=== PATIENT | female | born 1985 | race Caucasian/White ===

== ENCOUNTER 2019-08-29 15:11 | Emergency (ER) | payer OTHER, SELFPAY ==
[2019-08-29 15:14] VITALS: BP 135/79; PULSE 87; RESP 20; TEMP 36.7; O2SAT 100
--- NOTE | 2019-08-29 15:53 | ED.URI ---
HPI - URI/Sore Throat General Chief Complaint: Upper Respiratory Infection Stated Complaint: st, EAR PAIN, STREP EXPOSURE Time Seen by Provider: 08/29/19 15:22 Source: patient Mode of arrival: ambulatory Limitations: no limitations History of Present Illness HPI Narrative: This is a 34 year old female that presents to the ER for cold symptoms x 4 days. Reports fever, myalgias, headache, sore throat, congestion and ear pain. Also reports a mild cough. Denies chest pain or shortness of breath. Related Data Allergies Allergy/AdvReac Type Severity Reaction Status Date / Time No Known Allergies Allergy Verified 08/29/19 15:21 Review of Systems Review of Systems: Narrative: CONSTITUTIONAL: Reports fever, chills ENT: Reports rhinorrhea, congestion, sore throat, and otalgia. CARDIOVASCULAR: Denies chest pain RESPIRATORY: Reports cough. Denies dyspnea. All systems reviewed & are unremarkable except as noted in HPI and below PMFSH Social History Social History (Updated 08/29/19 @ 16:01 by Amaya Bruno PA-C) Smoking status: Never smoker Substance use: never Exam Narrative: Exam Narrative: GENERAL: Well-appearing, well-nourished, and in no acute distress. HEAD: Normocephalic, atraumatic. EYES: EOMI. ENT: Turbinates swollen and pale. Mucous membranes moist. Oropharynx with mild tonsillar hypertrophy, exudate or other lesions. Bilateral cerumen impaction NECK: Supple. No adenopathy or masses. CHEST: Clear to auscultation. No respiratory distress. No wheezes rales or rhonchi HEART: Regular rate and rhythm. No murmur heard. Normal peripheral pulses. EXTREMITIES: Normal range of motion. No edema. SKIN: Warm, dry, no rash. NEURO: No focal deficits. Alert and oriented x3. PSYCH: Normal mood and affect Course Vital Signs Vital signs: Vital Signs Temperature 98.0 F 08/29/19 15:14 Pulse Rate 87 08/29/19 15:14 Respiratory Rate 08/29/19 15:14 Blood Pressure 135/79 08/29/19 15:14 Pulse Oximetry 100 08/29/19 15:14 Temperature 98.0 F 08/29/19 15:14 Pulse Rate 87 08/29/19 15:14 Respiratory Rate 08/29/19 15:14 Blood Pressure 135/79 08/29/19 15:14 Pulse Oximetry 100 08/29/19 15:14 Procedures Ear Wax Removal Left Ear: Ear Wax Removal Date: 08/29/19 Ear Wax Removal Time: 17:27 Cerumenolytic Used: other (debrox) Results: Re-examined: some cerumen remains Ear Canal Exam: atraumatic Patient Tolerated Procedure: well Complications: no problems Technique: ear canal curetted MDM - URI/Sore Throat MDM Narrative Medical decision making narrative: Patient presents the emergency department for cold symptoms times 4 days. She is afebrile and nontoxic-appearing. Lungs are clear on exam. Rapid strep and influenza screens are negative. Patient reports ear pain and history of recurrent ear infections. I was able to remove some cerumen from the external auditory canals. But still has some impacted cerumen close to the TM. I did not want to further remove as to not perforate the TMs. External auditory canals are irritated and erythematous. Patient will be started on antibiotics and was instructed to follow up with her ENT doctor Lab Data Labs: Influenza A Screen Negative Reference Range: Negative Influenza B Screen Negative Reference Range: Negative Strep Screen Presumptive Negative *(Reference Range: Negative)* Critical Care Time Critical Care Time Critical Care Time: No Discharge Plan Discharge Clinical Impression: Otitis externa Qualifiers: Otitis externa type: unspecified type Chronicity: acute Laterality: bilateral Qualified Code(s): H60.503 - Unspecified acute noninfective otitis externa, bilateral Cerumen impaction Qualifiers: Laterality: bilateral Qualified Code(s): H61.23 - Impacted cerumen, bilateral Patient Disposition: Home, Self-Care Condition: Stable
[2019-08-29] MEDS: CARBAMIDE PEROXIDE 6.5% OT SOLN 15 ML BTL 5 DROP EACH EAR (16:19)
--- NOTE | 2019-08-29 17:03 | PC.NURSE ---
PT REFUSES TORADOL STATING THAT IT MAKE HER THROW UP. PT REPORTS TOLERATING IBUPROFEN TODAY
== END 2019-08-29 17:43 | disposition home or self-care (01) ==
PROVIDERS: Emergency Provider Emergency Medicine
DX: H60.503 Unspecified acute noninfective otitis externa, bilateral (principal); H61.23 Impacted cerumen, bilateral
CPT/HCPCS: 69210; 87081; 87804; 87880; 99283; A9270

== ENCOUNTER 2020-03-25 18:56 | Emergency (ER) | payer OTHER, SELFPAY ==
--- NOTE | ~2020-03-25 | CT_ITS ---
EXAMINATION: CT abdomen pelvis w con EXAM DATE: 03/25/2020 21:57 INDICATION: Diverticulitis. TECHNIQUE: Spiral CT of the abdomen and pelvis was performed following intravenous injection of 100 m L Omnipaque 350. Axial, coronal and sagittal images were reviewed. The dose-length product (DLP) fo r this examination was 766.43 mGy-cm. The exposure was tailored according to patient size (auto mA e xposure control), and iterative reconstruction (ASIR) was used as additional dose reduction technique . There is no prior study for comparison. FINDINGS: The liver, spleen, adrenal glands and pancreas are unremarkable. There are cholecystectomy clips. Portal and splenic veins are patent. Kidneys enhance symmetrically. There is no hydronephr osis. The uterus is anteverted and morphologically normal. The bladder is unremarkable. There is no retroperitoneal or pelvic lymphadenopathy. The appendix is normal. There is mild scattered colonic diverticulosis. There is no adjacent inflamm atory change to suggest diverticulitis. The stomach and small bowel are unremarkable. There is expec francis amount of colonic stool. No free intraperitoneal gas. The heart is normal in size. There are no pericardial or pleural effusions. The lung bases are unremarkable. There are no osteoblastic or osteolytic lesions identified. IMPRESSION: 1. No acute intra-abdominal findings. 2. Mild colonic diverticulosis. Reviewed, dictated and finalized at location G.
[2020-03-25 18:59] VITALS: BP 142/98; PULSE 81; RESP 18; TEMP 36.3; O2SAT 98
[2020-03-25 20:53] LABS: Basophils Percent Auto 0.4 % (0.2-1.2); Eosinophils Absolute Auto 0.3 K/mm3 (0-0.3); Eosinophils Percent Auto 2.8 % (0-4.4); Hemoglobin 12.8 g/dL (12.0-15.0); Immature Granulocyte Absolute 0.02 K/mm3 (0.00-0.031); Immature Granulocyte Percent A 0.2 % (0-0.5); Lymphocytes Absolute Auto 3.86 K/mm3 (0.9-3.2); Lymphocytes Percent Auto 38.7 % (18.3-44.2); Mean Corpuscular HGB Conc 33.7 g/dl (32-36); Mean Corpuscular Hemoglobin 27.8 pg (26-34); Mean Corpuscular Volume 82.6 fl (80-100); Mean Platelet Volume 10.9 fl (7.4-10.4); Monocytes Absolute Auto 0.7 K/mm3 (0.1-0.6); Monocytes Percent Auto 7.4 % (2.6-8.5); Neutrophils Percent Auto 50.5 % (45.5-73.1); Platelet Count Result 358 k/mm3 (150-375); Red Cell Distribution Width 12.5 % (11.5-14.5)
[2020-03-25 20:54] LABS: Alanine Aminotransferase 34 U/L (4-35); Albumin Level 4.3 g/dL (3.5-5.1); Alkaline Phosphatase 71 U/L (38-126); Anion Gap 9 mmol/L (8-16); Aspartate Amino Transferase 34 U/L (14-36); Bilirubin,Total 0.3 mg/dL (0.2-1.3); Blood Urea Nitrogen 13 mg/dL (7-17); Calcium 9.5 mg/dL (8.4-10.2); Carbon Dioxide 26 mmol/L (22-30); Chloride 102 mmol/L (98-107); Estimated CRCL calculation 83 ml/min; Estimated Glomerular Filt Rate > 60; Glucose 95 mg/dL (65-105); Lipase 87 U/L (23-300); Potassium 4.1 mmol/L (3.4-5.0); Sodium 137 mmol/L (137-145)
[2020-03-25] MEDS: SODIUM CHLORIDE 0.9% IV 1,000 ML 150 ML IV CONT (21:05)
[2020-03-25] MEDS: KETOROLAC 30 MG/ML VIAL (*BKC) IV PUSH (21:05)
[2020-03-25 21:16] LABS: Lactic Acid Reflex < 0.5 mmol/L (0.7-2.1)
[2020-03-25 21:19] LABS: Add Urine Microscopic? NO; Appearance Urine Clear (Clear); Bilirubin Urine Negative (Negative); Blood Urine Negative (Negative); Color Urine Yellow (Yellow); Glucose Urine UA Negative (Negative); Ketones Urine Negative (Negative); Leukocyte Esterase Ur Negative LEU/UL (Negative); Nitrate Urine Negative (Negative); Protein Urine Negative (Negative); Specific Grav Ur 1.019 (1.001-1.035); Urobilinogen Urine Negative mg/dL (<2.0)
--- NOTE | 2020-03-25 22:18 | PC.NURSE ---
Dr. Wolf at bedside.
--- NOTE | 2020-03-25 22:19 | ED.ABDPAIN ---
HPI - Abdominal Pain General Chief Complaint: Abdominal Pain Stated Complaint: abdominal pain Time Seen by Provider: 03/25/20 20:37 Source: patient Mode of arrival: ambulatory Limitations: no limitations History of Present Illness HPI narrative: 35-year-old with no major medical problems here with complaints of lower abdominal and back pain for past few days. Patient states that she has seen a OB doctor for the same. She presently denies any vaginal bleeding or discharge. She denies any fever or chills. MD elicited complaint: abdominal pain Pertinent past history: none Pain Consistency: constant Location: other (Lower back and perineal area) Severity: mild Quality: aching Exacerbating factors: nothing Relieving factors: nothing Related Data Allergies Allergy/AdvReac Type Severity Reaction Status Date / Time No Known Allergies Allergy Verified 03/25/20 19:01 Review of Systems Review of Systems: All systems reviewed & are unremarkable except as noted in HPI and below Constitutional: Constitutional: Reports no additional constitutional complaints Eyes: Eyes: Reports as per HPI Cardiovascular: Cardiovascular: Reports no additional cardiovascular complaints Respiratory: Respiratory: Reports no additional respiratory complaints Gastrointestinal: Gastrointestinal: Reports no additional gastrointestinal complaints Genitourinary: Genitourinary: Reports no additional female genitourinary complaints [facility] Social History Social History Smoking status: Never smoker Substance use: never Gender identity (if verbalized by the patient): Female Exam Narrative: Exam Narrative: GENERAL: Well-appearing, well-nourished, and in no acute distress. HEAD: Normocephalic, atraumatic. EYES: PERRLA and EOMI. ENT: Nares clear, no rhinorrhea or epistaxis. Mucous membranes moist. NECK: Supple. CHEST: Clear to auscultation. No respiratory distress. HEART: Regular rate and rhythm. No murmur heard. Normal peripheral pulses. ABDOMEN: Soft, nontender, nondistended, normal active bowel sounds. EXTREMITIES: Normal range of motion. No edema. SKIN: Warm, dry, no rash. NEURO: No focal deficits. Alert and oriented x3. PSYCH: Normal mood and affect. Course Course Emergency Course: Patient was constantly up and down on the bed talking on the phone and appears to be in no discomfort. I discussed her lab work, CT findings at this time there is no obvious in lab work or in CAT scan for cause of her pain. Advised her to take ibuprofen for pain as needed and follow-up with her OB doctor. Vital Signs Vital signs: Vital Signs Temperature 36.3 C L 03/25/20 18:59 Pulse Rate 81 03/25/20 18:59 Respiratory Rate 18 03/25/20 18:59 Blood Pressure 142/98 H 03/25/20 18:59 Pulse Oximetry 98 03/25/20 18:59 Temperature 36.3 C L 03/25/20 18:59 Pulse Rate 81 03/25/20 18:59 Respiratory Rate 18 03/25/20 18:59 Blood Pressure 142/98 H 03/25/20 18:59 Pulse Oximetry 98 03/25/20 18:59 MDM - Abdominal Pain Differential Diagnosis Differential diagnosis: Likely abdominal pain, diverticulitis and other (Spinal stenosis) Lab Data Attestation: I reviewed the patient's lab results. Result diagrams: 03/25/20 19:18 03/25/20 19:18 Labs: Lab Results 03/25/20 03/25/20 03/25/20 Range/Units 19:18 19:18 20:54 WBC 10.0 (4.5-10.0) K/mm3 RBC 4.60 (4.2-5.4) M/mm3 Hgb 12.8 (12.0-15.0) g/dL Hct 38.0 (37.0-47.0) % MCV 82.6 (80-100) fl MCH 27.8 (26-34) pg MCHC 33.7 (32-36) g/dl RDW 12.5 (11.5-14.5) % Plt Count 358 (150-375) k/mm3 MPV 10.9 H (7.4-10.4) fl Immature Gran % (Auto) 0.2 (0-0.5) % Neut % (Auto) 50.5 (45.5-73.1) % Lymph % (Auto) 38.7 (18.3-44.2) % [place] % (Auto) 7.4 (2.6-8.5) % Eos % (Auto) 2.8 (0-4.4) % Baso % (Auto) 0.4 (0.2-1.2) % Lymph # (Auto) 3.86 H (0.9-3.
[2020-03-25 22:29] VITALS: BP 132/78; PULSE 70; RESP 18; O2SAT 99
== END 2020-03-25 22:31 | disposition home or self-care (01) ==
PROVIDERS: Emergency Provider Family Medicine
DX: R10.2 Pelvic and perineal pain (principal); K57.90 Diverticulosis of intestine, part unspecified, without perforation or abscess without bleeding
CPT/HCPCS: 36415; 74177; 80053; 81003; 81025; 83605; 83690; 85025; 96361; 96374; 99284; J1885; J7030; Q9967

== ENCOUNTER 2020-09-17 15:30 | Emergency (ER) | payer OTHER, SELFPAY ==
[2020-09-17 15:40] VITALS: BP 139/88; PULSE 78; RESP 16; TEMP 36.9; O2SAT 99
--- NOTE | 2020-09-17 15:55 | ED.URI ---
HPI - URI/Sore Throat General Chief Complaint: Upper Respiratory Infection Stated Complaint: sinus issues Time Seen by Provider: 09/17/20 15:41 Source: patient and RN notes reviewed Mode of arrival: ambulatory Limitations: no limitations History of Present Illness HPI Narrative: Patient presents today with a 3-day history of postnasal drip, sneezing, headache, and rhinorrhea. States sore throat started 3 days ago, but quickly resolved. Denies congestion, fever, cough, nausea or vomiting, ear pain. Denies any history of asthma or COPD. Does report history of seasonal allergies. She has been taking Mucinex without relief. She does not currently take anything for her seasonal allergies. She is a former smoker, quitting approximately 2 years ago. MD elicited complaint: rhinorrhea Related Data Allergies Allergy/AdvReac Type Severity Reaction Status Date / Time No Known Allergies Allergy Verified 03/25/20 19:01 Review of Systems Review of Systems: Narrative: CONSTITUTIONAL: Denies body aches, fever, chills, or sweats. EYES: Denies visual changes, redness, or discharge. ENT: Denies congestion, sore throat, or otalgia.+ Postnasal drip, rhinorrhea, sneezing CARDIOVASCULAR: Denies chest pain, palpitations, or edema. RESPIRATORY: Denies cough or dyspnea. GASTROINTESTINAL: Denies abdominal pain, nausea, vomiting, or diarrhea. GENITOURINARY: Denies dysuria or hematuria. SKIN: Denies rash, itching, or wounds. MUSCULOSKELETAL: Denies back pain, joint pain, or myalgia. NEUROLOGIC: Denies numbness, tingling, or weakness. + Headache PSYCH: Denies depression or anxiety. PMFSH Social History Social History (Updated 09/17/20 @ 16:15 by Rachelle Hilton, [facility], ) Smoking status: Former smoker Substance use: never Gender identity (if verbalized by the patient): Female Comments At time of signature, I have reviewed and agree with nursing past medical, surgical, social and family history unless otherwise noted. Please see nursing chart for further information. There is no relevant family history pertinent to the presenting complaint Exam Narrative: Exam Narrative: GENERAL: Well-appearing, well-nourished, and in no acute distress. HEAD: Normocephalic, atraumatic. EYES: EOMI. No redness or drainage. Conjunctivae normal. ENT: Mucous membranes pink and moist. Nares clear. Nasal turbinates are mildly edematous. no rhinorrhea. TMs are occluded with bilateral cerumen impactions. Throat normal with clear postnasal drainage. Uvula midline. NECK: Normal AROM. Supple. No lymphadenopathy. CHEST: No respiratory distress. Clear to auscultation. HEART: Regular rate and rhythm. No murmur appreciated. Normal peripheral pulses. EXTREMITIES: Normal range of motion. No edema. SKIN: Warm, dry, no rash. Capillary refill normal. Normal skin turgor. NEURO: No focal deficits. Alert and oriented x3. Gait steady. PSYCH: Normal affect. No signs of depression or anxiety. Course Vital Signs Vital signs: Vital Signs Temperature 98.5 F 09/17/20 15:40 Pulse Rate 78 09/17/20 15:40 Respiratory Rate 16 09/17/20 15:40 Blood Pressure 139/88 09/17/20 15:40 Pulse Oximetry 99 09/17/20 15:40 Temperature 98.5 F 09/17/20 15:40 Pulse Rate 78 09/17/20 15:40 Respiratory Rate 16 09/17/20 15:40 Blood Pressure 139/88 09/17/20 15:40 Pulse Oximetry 99 09/17/20 15:40 Reviewed. Pt has been instructed to follow up with her PCP regarding her elevated blood pressure today. MDM - URI/Sore Throat Differential Diagnosis Differential diagnosis: Likely upper respiratory infection, sinusitis, viral infection and other (Rhinitis, COVID-19, seasonal allergies) Critical Care Time Critical Care Time Critical Care Time: No Discharge Plan Discharge Clinical Impression: Allergic rhinitis Qualifiers: Allergic rhinitis trigger: unspecified Allergic rhinitis seasonality: unspecified Qualified Code(s): J30.9 - Allergic rhinitis, unspecified
== END 2020-09-17 16:03 | disposition home or self-care (01) ==
PROVIDERS: Emergency Provider Nurse Practitioner
DX: J30.9 Allergic rhinitis, unspecified (principal); Z87.891 Personal history of nicotine dependence
CPT/HCPCS: 99213; G0463

== ENCOUNTER 2021-01-06 14:49 | Emergency (ER) | payer OTHER, SELFPAY ==
[2021-01-06 14:58] VITALS: BP 125/75; PULSE 78; RESP 16; TEMP 36.8; O2SAT 98
--- NOTE | 2021-01-06 15:01 | ED.EAR ---
HPI - Ear Problem General Chief complaint: Ear Stated complaint: EARACHE Time Seen by Provider: 01/06/21 14:52 Source: patient Mode of arrival: ambulatory Limitations: no limitations History of Present Illness HPI Narrative: 35-year-old female presents to [facility] with complaints of left ear pain and swelling since yesterday. Patient has been swimming a lot lately. Patient reports long history of ear infections. Patient denies cough, runny nose, nasal congestion, fever, bodies, chills, nausea, vomiting or diarrhea. MD Complaint: ear pain Location: left ear Exacerbating factors: nothing Discharge from ear: Reports no Treatment prior to arrival: none Related Data Allergies Allergy/AdvReac Type Severity Reaction Status Date / Time No Known Allergies Allergy Verified 03/25/20 19:01 Review of Systems Constitutional: Constitutional: Denies chills, Denies fatigue, Denies fever(s) and Denies weakness ENT: Denies dysphagia, Denies epistaxis and Denies sore throat Comments: Left ear pain Cardiovascular: Cardiovascular: Denies chest pain, Denies rapid heart rate, Denies radiating jaw, neck or arm pain and Denies slow heart rate Respiratory: Respiratory: Denies chest congestion, Denies cough, Denies dyspnea and Denies wheezing Gastrointestinal: Gastrointestinal: Denies abdominal pain, Denies diarrhea, Denies nausea and Denies vomiting Integumentary/Breasts: Skin/Breast: Denies rash Neurologic: Denies dizziness PMFSH Family History Family History (Updated 01/06/21 @ 15:03 by Shira Barkley APRN) Father Acute myocardial infarction Social History Social History Smoking status: Former smoker Substance use: never Gender identity (if verbalized by the patient): Female Comments At time of signature, I agree with nursing past medical, surgical, social and family history. There is no relevant family history pertinent to the presenting complaint. Exam Const: General: no acute distress Nutritional Appearance: well nourished Orientation/consciousness: patient oriented x3 HENMT: Head: normal to inspection Ears: Abnormal EAC present (Mild cerumen noted to bilateral ear canals) edema on the left and EAC tenderness on the left General nose exam: Normal external nose present and Normal nares present Face and sinus: sinuses nontender Mouth: Yes Normal oral and palatal mucosa present, Yes lip normal and Yes moist mucous membranes Throat: posterior oropharynx normal and uvula midline Neck: Neck: normal visual inspection Resp: Effort & Inspection: normal respiratory effort, not labored, no retractions and not tachypneic Auscultation: clear to auscultation bilaterally Cardio: Rate: regular rate, not bradycardic and not tachycardic Rhythm: regular rhythm Skin: General skin exam: normal color Rashes: no rashes Wounds: no wounds Neuro: General: patient oriented x3, moves all extremities and no meningeal signs Psych: Appearance: grossly normal Mental Status: mental status grossly normal Affect: normal affect Thought content: Yes Normal thought content present Course Vital Signs Vital signs: Vital Signs Temperature 36.8 C 01/06/21 14:58 Pulse Rate 78 01/06/21 14:58 Respiratory Rate 16 01/06/21 14:58 Blood Pressure 125/75 01/06/21 14:58 Pulse Oximetry 98 01/06/21 14:58 Temperature 36.8 C 01/06/21 14:58 Pulse Rate 78 01/06/21 14:58 Respiratory Rate 16 01/06/21 14:58 Blood Pressure 125/75 01/06/21 14:58 Pulse Oximetry 98 01/06/21 14:58 Medical Decision Making MDM Narrative Medical decision making narrative: Patient agrees to take meds as prescribed. Patient agrees to use OTC Debrox as needed for cerumen impaction. Patient agrees to proceed to ER if symptoms worsen Differential Diagnosis Differential Diagnosis: cerumen impaction, acute otalgia Vital Signs Vital Signs: Vital Signs Temperature 36.8 C 01/06/21 14:
== END 2021-01-06 15:12 | disposition home or self-care (01) ==
PROVIDERS: Emergency Provider Nurse Practitioner Family
DX: H66.92 Otitis media, unspecified, left ear (principal); H60.502 Unspecified acute noninfective otitis externa, left ear; Z87.891 Personal history of nicotine dependence
CPT/HCPCS: 99213; G0463

== ENCOUNTER 2021-03-21 15:55 | Emergency (ER) | payer OTHER, SELFPAY ==
[2021-03-21 16:09] VITALS: BP 125/69; PULSE 70; RESP 20; TEMP 36.8; O2SAT 99
--- NOTE | 2021-03-21 17:40 | ED.EAR ---
HPI - Ear Problem General Chief complaint: Ear Stated complaint: Ear Pain Time Seen by Provider: 03/21/21 17:06 Source: patient and RN notes reviewed Mode of arrival: ambulatory Limitations: no limitations History of Present Illness HPI Narrative: Patient presents today complaining of bilateral ear pain, right greater than left with muffled hearing. Pain started last night. Denies congestion, rhinorrhea, cough, fever. She has been taking Tylenol and ibuprofen without relief. She currently rates her pain 7/10. She had an ear infection approximately 1 month ago for which she took amoxicillin. MD Complaint: ear pain and decreased hearing Related Data Allergies Allergy/AdvReac Type Severity Reaction Status Date / Time No Known Allergies Allergy Verified 03/21/21 16:22 Review of Systems Review of Systems: CONSTITUTIONAL: Denies body aches, fever, chills, or sweats. EYES: Denies visual changes, redness, or discharge. ENT: Denies rhinorrhea, congestion, sore throat. + Bilateral ear pain with muffled hearing CARDIOVASCULAR: Denies chest pain, palpitations, or edema. RESPIRATORY: Denies cough or dyspnea. GASTROINTESTINAL: Denies abdominal pain, nausea, vomiting, or diarrhea. GENITOURINARY: Denies dysuria or hematuria. SKIN: Denies rash, itching, or wounds. MUSCULOSKELETAL: Denies back pain, joint pain, or myalgia. NEUROLOGIC: Denies headache, numbness, tingling, or weakness. PSYCH: Denies depression or anxiety. PMFSH Surgical History Surgical History (Updated 03/21/21 @ 17:42 by Rachelle Hilton, [facility], ) H/O tubal ligation Family History Family History Father Acute myocardial infarction Social History Social History Smoking status: Former smoker Substance use: never Gender identity (if verbalized by the patient): Female Comments At time of signature, I have reviewed and agree with nursing past medical, surgical, social and family history unless otherwise noted. Please see nursing chart for further information. There is no relevant family history pertinent to the presenting complaint Exam Narrative: GENERAL: Well-appearing, well-nourished, and in no acute distress. HEAD: Normocephalic, atraumatic. EYES: EOMI. No redness or drainage. Conjunctivae normal. ENT: Mucous membranes pink and moist. Nares clear. No rhinorrhea. Bilateral cerumen impactions. Bilateral erythematous and edematous ear canals. Movement and tragal tenderness on the right. Throat normal. Uvula midline. NECK: Normal AROM. CHEST: No respiratory distress. EXTREMITIES: Normal range of motion. No edema. SKIN: Warm, dry, no rash. Capillary refill normal. Normal skin turgor. NEURO: No focal deficits. Alert and oriented x3. Gait steady. PSYCH: Normal affect. No signs of depression or anxiety. Course Vital Signs Vital signs: Vital Signs Temperature 98.2 F 03/21/21 16:09 Pulse Rate 70 03/21/21 16:09 Respiratory Rate 20 03/21/21 16:09 Blood Pressure 125/69 03/21/21 16:09 Pulse Oximetry 99 03/21/21 16:09 Temperature 98.2 F 03/21/21 16:09 Pulse Rate 70 03/21/21 16:09 Respiratory Rate 20 03/21/21 16:09 Blood Pressure 125/69 03/21/21 16:09 Pulse Oximetry 99 03/21/21 16:09 Reviewed. Pt has been instructed to follow up with her PCP regarding her elevated blood pressure today. Procedures Ear Wax Removal Both Ears: Ear Wax Removal Date: 03/21/21 Ear Wax Removal Time: 17:15 Cerumenolytic Used: other (Peroxide) Results: Re-examined: some cerumen remains ( right ear) TM Examination: TM(s) intact, normal appearance (Left care) Patient Tolerated Procedure: well Complications: no problems Technique: ear canal irrigated (Right) and ear canal curetted (Left) Medical Decision Making Differential Diagnosis Differential Diagnosis: Otitis
== END 2021-03-21 17:50 | disposition home or self-care (01) ==
PROVIDERS: Emergency Provider Nurse Practitioner
DX: H61.23 Impacted cerumen, bilateral (principal); H60.503 Unspecified acute noninfective otitis externa, bilateral; Z87.891 Personal history of nicotine dependence
CPT/HCPCS: 69210; 69209; 99213; G0463

== ENCOUNTER 2021-06-17 14:28 | Emergency (ER) | payer OTHER, SELFPAY ==
[2021-06-17 16:40] VITALS: BP 136/101; PULSE 76; RESP 16; TEMP 36.5; O2SAT 100
--- NOTE | 2021-06-17 17:43 | ED.GENADULT ---
HPI - General Adult General Chief complaint: Upper Respiratory Infection Stated complaint: sorethroat,cough Source: patient Mode of arrival: ambulatory Limitations: no limitations History of Present Illness HPI narrative: Patient presents for evaluation of respiratory symptoms for last 4 days. Symptoms include productive cough of yellow sputum with sore throat. She denies any fever, chills, nausea, vomiting, diarrhea. She has received COVID vaccination. She has not had a history of Covid. No recent sick contacts to her knowledge. She has tried taking ibuprofen with minimal improvement in her symptoms or after. Related Data Allergies Allergy/AdvReac Type Severity Reaction Status Date / Time No Known Allergies Allergy Verified 06/17/21 17:04 Review of Systems Review of Systems: CONSTITUTIONAL: Denies fever, chills, or sweats. EYES: Denies visual changes, redness, or discharge. ENT: Reports sore throat. Denies rhinorrhea, congestion, or otalgia. CARDIOVASCULAR: Denies chest pain, palpitations, or edema. RESPIRATORY: Reports productive cough. Denies shortness of breath. GASTROINTESTINAL: Denies abdominal pain, nausea, vomiting, or diarrhea. GENITOURINARY: Denies dysuria or hematuria. SKIN: Denies rash or itching. MUSCULOSKELETAL: Denies back pain, joint pain, or myalgia. NEUROLOGIC: Denies headache, numbness, dizziness, or weakness. PSYCHIATRIC: Denies anxiety or depression. PMFSH Past Medical History Medical History (Updated 06/17/21 @ 17:46 by Jose G Junior, THIERRY, ) No pertinent past medical history Surgical History Surgical History H/O tubal ligation History of tympanostomy tube placement Family History Family History Father Acute myocardial infarction Social History Social History Smoking status: Former smoker Substance use: never Gender identity (if verbalized by the patient): Female Sexual Orientation (if Verbalized by the Patient): Straight or Heterosexual Spiritual care concerns: No Exam Narrative: GENERAL: Well-appearing, well-nourished, and in no acute distress. HEAD: Normocephalic, atraumatic. EYES: PERRLA and EOMI. ENT: Nares clear, no rhinorrhea or epistaxis. Mucous membranes moist. Oropharynx without tonsillar hypertrophy exudate or other lesions. There is posterior pharyngeal erythema. Bilateral TMs pearly fox nonbulging NECK: Supple. No adenopathy or masses. No carotid bruits or JVD CHEST: Clear to auscultation. No respiratory distress. No wheezes rales or rhonchi HEART: Regular rate and rhythm. No murmur heard. Normal peripheral pulses. ABDOMEN: Soft, nontender, nondistended, normal active bowel sounds. EXTREMITIES: Normal range of motion. No edema. SKIN: Warm, dry, no rash. NEURO: No focal deficits. Alert and oriented x3. PSYCH: Normal mood and affect. Course Course Emergency Course: This is a 36-year-old female who presented with complaints of cough and sore throat. Covid was negative. Strep was negative. She refused influenza swab. I recommended chest x-ray, which she declined. Likely acute viral syndrome. Will discharge with Cepacol and Tessalon. Advised close follow-up and return for worsening symptoms. Patient agreed with plan of care. Level of Care: Express Care Visit Vital Signs Vital signs: Vital Signs Temperature 36.5 C 06/17/21 16:40 Pulse Rate 76 06/17/21 16:40 Respiratory Rate 16 06/17/21 16:40 Blood Pressure 136/101 H 06/17/21 16:40 Pulse Oximetry 100 06/17/21 16:40 Temperature 36.5 C 06/17/21 16:40 Pulse Rate 76 06/17/21 16:40 Respiratory Rate 16 06/17/21 16:40 Blood Pressure 136/101 H 06/17/21 16:40 Pulse Oximetry 100 06/17/21 16:40 Medical Decision Making Differential Diagnosis Differential Diagnosis: Strep pharyngitis julián
== END 2021-06-17 17:50 | disposition home or self-care (01) ==
PROVIDERS: Emergency Provider Nurse Practitioner
DX: B34.9 Viral infection, unspecified (principal); Z20.822 Contact with and (suspected) exposure to COVID-19; Z87.891 Personal history of nicotine dependence
CPT/HCPCS: 87081; 87426; 87880; 99213; C9803; G0463

== ENCOUNTER 2021-09-04 17:04 | Emergency (ER) | payer OTHER, SELFPAY ==
[2021-09-04 17:08] VITALS: BP 112/68; PULSE 65; RESP 16; TEMP 36.5; O2SAT 100
--- NOTE | 2021-09-04 17:31 | ED.SKABFB ---
HPI - Skin/Abscess/Foreign Bdy General Chief complaint: Skin/Abscess/Foreign Body Stated complaint: Staph infection Time Seen by Provider: 09/04/21 17:25 Source: patient Mode of arrival: ambulatory Limitations: no limitations History of Present Illness HPI narrative: Ms. Noriega is a 36-year-old female patient presenting to the clinic today with complaints of sores in her pelvic area. She reports that she first noticed these 2 days ago-they are becoming sore and hard. Has had staph infections in the past on her thigh and feels that this is what is going on. She is requesting antibiotics. She denies any fever or chills. She denies any drainage coming from the source Related Data Allergies Allergy/AdvReac Type Severity Reaction Status Date / Time No Known Allergies Allergy Verified 09/04/21 17:25 Review of Systems Review of Systems: Pertinent positives per HPI. Patient denies any fever, chills, rash, headache, visual changes, dizziness, cough, runny nose, sore throat, shortness of breath, chest pain, palpitations, nausea, vomiting, diarrhea, constipation, abdominal pain, or any urinary issues. PMFSH Past Medical History Medical History No pertinent past medical history Surgical History Surgical History H/O tubal ligation History of tympanostomy tube placement Family History Family History Father Acute myocardial infarction Social History Social History Smoking status: Former smoker Substance use: never Gender identity (if verbalized by the patient): Female Sexual Orientation (if Verbalized by the Patient): Straight or Heterosexual Spiritual care concerns: No Comments At the time of my signature, I reviewed and agree with the nursing past medical, surgical, social, and family history. There is no relevant family history pertinent to the patient complaint. Exam Narrative: General: Well-developed, well nourished, in no apparent distress Cardio: Regular rate and rhythm, s1 and s2 normal, no murmur appreciated. Resp: Clear to auscultation bilaterally, no rhonchi, rales, wheezing or rubs. Abdomen: Soft, pliable, bowel sounds present in all quadrants, non-tender to palpation, no CVAT tenderness. : Exterior pelvic exam performed with WIL RN at bedside. Verbal consent obtained from patient. Normal external female genitalia-two pea size sores to the inferior mons pubis just superior of clitoris. Sores are nonfluctuant-mild yellowish coloration. Tender to palpation with mild redness and swelling. Course Course Emergency Course: Portions of this record may have been created with voice recognition software. Level of Care: Express Care Visit Vital Signs Vital signs: Vital Signs Temperature 36.5 C 09/04/21 17:08 Pulse Rate 65 09/04/21 17:08 Respiratory Rate 16 09/04/21 17:08 Blood Pressure 112/68 09/04/21 17:08 Pulse Oximetry 100 09/04/21 17:08 Temperature 36.5 C 09/04/21 17:08 Pulse Rate 65 09/04/21 17:08 Respiratory Rate 16 09/04/21 17:08 Blood Pressure 112/68 09/04/21 17:08 Pulse Oximetry 100 09/04/21 17:08 Vital signs reviewed MDM - Skin/Abscess/Foreign Bdy MDM Narrative Medical decision making narrative: At the time of visit patient was evaluated and it was found that she has 2 pea-sized firm sores/folliculitis to the pelvis. I will send in a prescription for doxycycline for this for 7 days and have her use Hibiclens to prevent further infections. At this time these are not fluctuant and not drainable. Differential Diagnosis Differential diagnosis: Likely abscess of skin or subcutaneous tissue, herpes zoster, cellulitis and other Discharge Plan Discharge Clinical Impression: Folliculitis Patient Dispositi
== END 2021-09-04 17:46 | disposition home or self-care (01) ==
PROVIDERS: Emergency Provider Nurse Practitioner Family
DX: L73.9 Follicular disorder, unspecified (principal); Z87.891 Personal history of nicotine dependence
CPT/HCPCS: 99213; G0463

== ENCOUNTER 2021-11-28 16:31 | Emergency (ER) | payer OTHER, SELFPAY ==
[2021-11-28 16:39] VITALS: BP 119/67; PULSE 67; RESP 16; TEMP 37.3; O2SAT 99
--- NOTE | 2021-11-28 17:02 | ED.URI ---
HPI - URI/Sore Throat General Chief Complaint: Upper Respiratory Infection Stated Complaint: sore throat Time Seen by Provider: 11/28/21 16:46 Source: patient Mode of arrival: ambulatory Limitations: no limitations History of Present Illness HPI Narrative: Patient presents today with with a 2-day history of intermittent sore throat, that is typically present only with swallowing. Denies any additional symptoms. She currently rates her pain 2/10, and has tried no [id number]-naz-fhytico treatment prior to arrival. She presents today with her daughter has similar symptoms. Related Data Allergies Allergy/AdvReac Type Severity Reaction Status Date / Time No Known Allergies Allergy Verified 10/02/21 07:55 Review of Systems Review of Systems: CONSTITUTIONAL: Denies body aches, fever, chills, or sweats. EYES: Denies visual changes, redness, or discharge. ENT: Denies rhinorrhea, congestion, or otalgia.+ Sore throat CARDIOVASCULAR: Denies chest pain, palpitations, or edema. RESPIRATORY: Denies cough or dyspnea. GASTROINTESTINAL: Denies abdominal pain, nausea, vomiting, or diarrhea. GENITOURINARY: Denies dysuria or hematuria. SKIN: Denies rash, itching, or wounds. MUSCULOSKELETAL: Denies back pain, joint pain, or myalgia. NEUROLOGIC: Denies headache, numbness, tingling, or weakness. PSYCH: Denies depression or anxiety. [facility] Past Medical History Medical History No pertinent past medical history Surgical History Surgical History H/O tubal ligation History of tympanostomy tube placement Family History Family History Father Acute myocardial infarction Mother No problems noted. Sibling No problems noted. Social History Social History Smoking status: Former smoker Second hand tobacco smoke exposure: No Alcohol intake: current Substance use: never Substance use type: does not use Gender identity (if verbalized by the patient): Female Sexual Orientation (if Verbalized by the Patient): Straight or Heterosexual Spiritual care concerns: No Comments At time of signature, I have reviewed and agree with nursing past medical, surgical, social and family history unless otherwise noted. Please see nursing chart for further information. There is no relevant family history pertinent to the presenting complaint Exam Narrative: GENERAL: Well-appearing, well-nourished, and in no acute distress. HEAD: Normocephalic, atraumatic. EYES: EOMI. No redness or drainage. Conjunctivae normal. ENT: Mucous membranes pink and moist. Nares clear. No rhinorrhea. TMs normal bilaterally. Throat mildly erythematous without edema or exudate. Uvula midline. NECK: Normal AROM. Supple. No lymphadenopathy. CHEST: No respiratory distress. Clear to auscultation. HEART: Regular rate and rhythm. No murmur appreciated. Normal peripheral pulses. EXTREMITIES: Normal range of motion. No edema. SKIN: Warm, dry, no rash. Capillary refill normal. Normal skin turgor. NEURO: No focal deficits. Alert and oriented x3. Gait steady. PSYCH: Normal affect. No signs of depression or anxiety. Course Course Level of Care: Express Care Visit Vital Signs Vital signs: Vital Signs Temperature 99.2 F 11/28/21 16:39 Pulse Rate 67 11/28/21 16:39 Respiratory Rate 16 11/28/21 16:39 Blood Pressure 119/67 11/28/21 16:39 Pulse Oximetry 99 11/28/21 16:39 Oxygen Delivery Room Air 11/28/21 16:39 Temperature 99.2 F 11/28/21 16:39 Pulse Rate 67 11/28/21 16:39 Respiratory Rate 16 11/28/21 16:39 Blood Pressure 119/67 11/28/21 16:39 Pulse Oximetry 99 11/28/21 16:39 Oxygen Delivery Room Air 11/28/21 16:39 Reviewed MDM - URI/Sore Throat Differential Diagnosis Differen
== END 2021-11-28 17:14 | disposition home or self-care (01) ==
PROVIDERS: Emergency Provider Nurse Practitioner
DX: J02.9 Acute pharyngitis, unspecified (principal); Z87.891 Personal history of nicotine dependence
CPT/HCPCS: 87081; 87880; 99213; G0463

== ENCOUNTER 2023-08-08 18:33 | Emergency (ER) | payer SELFPAY ==
[2023-08-08 18:59] VITALS: BP 128/90; PULSE 79; RESP 16; TEMP 36.6; O2SAT 98
--- NOTE | 2023-08-08 19:08 | ED.FEMALEGU ---
HPI - Female Genitourinary General Chief complaint: Urogenital-Female Stated complaint: Uti symptoms Source: patient and RN notes reviewed Mode of arrival: ambulatory Limitations: no limitations History of Present Illness HPI Narrative: 38-year-old female presented stating ?I have bacterial vaginosis. ? she states she gets them often. This time it is resulting from inadvertantly using scented toilet paper. Tried yeast cream without improvement. Endorses vaginal itching, and constant thin discharge with foul odor. Denies hematuria, nausea, vomiting, abdominal pain, flank pain, constipation, diarrhea, fevers or chills. States she is not sexually active and is not concerned for std. Related Data Allergies Allergy/AdvReac Type Severity Reaction Status Date / Time No Known Allergies Allergy Verified 08/08/23 18:46 Review of Systems Review of Systems: CONSTITUTIONAL: Denies body aches, fever, chills, or sweats. CARDIOVASCULAR: Denies chest pain, palpitations, or edema. RESPIRATORY: Denies cough or dyspnea. GASTROINTESTINAL: Denies abdominal pain, nausea, vomiting, or diarrhea. GENITOURINARY: Reports denies dysuria, frequency, urgency, hematuria, flank pain SKIN: Denies rash, itching, or wounds. MUSCULOSKELETAL: Denies back pain or myalgia. [facility] Past Medical History Medical History No pertinent past medical history Surgical History Surgical History H/O tubal ligation History of tympanostomy tube placement Family History Family History Father Acute myocardial infarction Mother No problems noted. Sibling No problems noted. Social History Social History Smoking status: Former smoker Second hand tobacco smoke exposure: No Alcohol intake: current Substance use: never Substance use type: does not use Living arrangements: with family Gender identity (if verbalized by the patient): Female Sexual Orientation (if Verbalized by the Patient): Straight or Heterosexual Spiritual care concerns: No Comments At time of signature, I have reviewed and agree with nursing past medical, surgical, social and family history unless otherwise noted. Please see nursing chart for further information. There is no relevant family history pertinent to the presenting complaint Exam Narrative: GENERAL: Well-appearing and in no acute distress. ENT: Mucous membranes pink and moist. NECK: Normal AROM. Supple. CHEST: No respiratory distress. Clear to auscultation. HEART: Regular rate and rhythm. ABDOMEN: Soft, nontender, nondistended, normal active bowel sounds. No CVA tenderness SKIN: Warm, dry, no rash. NEURO: No focal deficits. Alert and oriented x3. Gait steady. PSYCH: Normal affect. Course Course Emergency Course: Patient is aware of diagnosis, understands and agrees to treatment plan. Anticipatory guidance given. Patient agrees to follow-up as directed and is aware of reasons to seek care at the emergency department. Portions of this record may have been created with voice recognition software Level of Care: Express Care Visit Vital Signs Vital signs: Vital Signs Temperature 98 F 08/08/23 18:59 Pulse Rate 79 08/08/23 18:59 Respiratory Rate 16 08/08/23 18:59 Blood Pressure 128/90 08/08/23 18:59 Pulse Oximetry 98 08/08/23 18:59 Temperature 98 F 08/08/23 18:59 Pulse Rate 79 08/08/23 18:59 Respiratory Rate 16 08/08/23 18:59 Blood Pressure 128/90 08/08/23 18:59 Pulse Oximetry 98 08/08/23 18:59 Reviewed MDM - Female Genitourinary MDM Narrative Medical decision making narrative: Results of urine reviewed patient. Will treat for BV at this time. She is also requesting fluconazole should she develop a yeast infection after
== END 2023-08-08 19:25 | disposition home or self-care (01) ==
PROVIDERS: Emergency Provider Nurse Practitioner Family
DX: N76.0 Acute vaginitis (principal); Z87.891 Personal history of nicotine dependence
CPT/HCPCS: 81003; 99213; G0463

== ENCOUNTER 2024-03-21 12:02 | Emergency (ER) | payer OTHER, SELFPAY ==
--- NOTE | ~2024-03-21 | XR_ITS ---
EXAMINATION: XR chest 2V DATE: 03/21/2024 12:56 INDICATION: Nonproductive cough TECHNIQUE: AP view of the chest was obtained. COMPARISON: None FINDINGS: The lungs are clear with no focal airspace opacities, pulmonary edema, pleural effusion or pneumothor ax. The cardiomediastinal silhouette is normal. Cholecystectomy clips in right upper quadrant. IMPRESSION: 1. No acute cardiopulmonary disease. Reviewed, dictated and finalized at location A.
[2024-03-21 12:16] VITALS: BP 125/87; PULSE 86; RESP 16; TEMP 36.8; O2SAT 98
--- NOTE | 2024-03-21 12:19 | ED.URI ---
HPI - URI/Sore Throat General Chief Complaint: Upper Respiratory Infection Stated Complaint: cough Time Seen by Provider: 03/21/24 12:19 Source: patient, RN notes reviewed and old records reviewed Mode of arrival: ambulatory Limitations: no limitations History of Present Illness HPI Narrative: Patient presents with complaints of 5 days of wheezing and cough. She denies any history of asthma. She does report that she has frequent bronchitis. She has been using her child's nebulizer states this is helpful. Reports cough is typically worse in the morning and at nighttime. She denies any fever, chills, sweats. Denies any nasal drainage. Voices no other concerns or complaints at this time. She is in no distress, including respiratory distress Related Data Allergies Allergy/AdvReac Type Severity Reaction Status Date / Time No Known Allergies Allergy Verified 03/21/24 12:28 Review of Systems Review of Systems: All systems reviewed & are unremarkable except as noted in HPI and below Constitutional: Constitutional: Reports no additional constitutional complaints ENT: Reports system reviewed and no additional complaints, except as documented Cardiovascular: Cardiovascular: Reports no additional cardiovascular complaints Respiratory: Respiratory: Reports no additional respiratory complaints Gastrointestinal: Gastrointestinal: Reports no additional gastrointestinal complaints [facility] Past Medical History Medical History No pertinent past medical history Surgical History Surgical History H/O tubal ligation History of tympanostomy tube placement Family History Family History Father Acute myocardial infarction Mother No problems noted. Sibling No problems noted. Social History Social History Smoking status: Former smoker Second hand tobacco smoke exposure: No Alcohol intake: current Substance use: never Substance use type: does not use Living arrangements: with family Gender identity (if verbalized by the patient): Female Sexual Orientation (if Verbalized by the Patient): Straight or Heterosexual Spiritual care concerns: No Comments At the time of my signature, I reviewed and agree with the nursing past medical, surgical, social, and family history. There is no relevant family history pertinent to the patient complaint. Exam Const: General: cooperative, no acute distress, alert and awake Orientation/consciousness: oriented to person, oriented to place and oriented to time HENMT: Head: normal to inspection Ears: TM's normal bilaterally Mouth: Yes moist mucous membranes Throat: posterior oropharynx normal Resp: Effort & Inspection: normal respiratory effort and able to speak in complete sentences Auscultation: clear to auscultation bilaterally, no crackles, no rales, no rhonchi and no wheezes Cardio: Palpation: normal PMI Rate: regular rate Rhythm: regular rhythm Heart sounds: S1 normal heart sound present and S2 normal heart sound present Neuro: General: oriented to person, oriented to place and oriented to time Cranial nerves: Yes CN's II-XII intact bilaterally Psych: Appearance: grossly normal Thought process: Normal thought process present Insight: Good insight present (Psych) Judgement: Good judgement present (Psych) Course Course Level of Care: Express Care Visit Vital Signs Vital signs: Vital Signs Temperature 98.3 F 03/21/24 12:16 Pulse Rate 86 03/21/24 12:16 Respiratory Rate 16 03/21/24 12:16 Blood Pressure 125/87 03/21/24 12:16 Pulse Oximetry 98 03/21/24 12:16 Oxygen Delivery Room Air 03/21/24 12:16 Temperature 98.3 F 03/21/24 12:16 Pulse Rate 86 03/21/24 12:16 Respiratory Rate 16 03/21/24 12:16 Blood P
[2024-03-21] MEDS: IPRATROPIUM 0.5 MG/ALBUTEROL SULFATE 2.5 MG AMPUL.NEB 3 ML INHALATION (13:00)
== END 2024-03-21 13:25 | disposition home or self-care (01) ==
PROVIDERS: Emergency Provider Nurse Practitioner Family
DX: J40 Bronchitis, not specified as acute or chronic (principal); Z87.891 Personal history of nicotine dependence
CPT/HCPCS: 71046; 94640; 99213; G0463

== ENCOUNTER 2024-03-25 10:18 | Emergency (ER) | payer OTHER, SELFPAY ==
[2024-03-25 10:34] VITALS: PULSE 87; RESP 20; TEMP 36.7; O2SAT 100
--- NOTE | 2024-03-25 11:14 | ED.URI ---
HPI - URI/Sore Throat General Chief Complaint: Upper Respiratory Infection Stated Complaint: cough,back pain,chest pain when cough Time Seen by Provider: 03/25/24 11:14 Source: patient Mode of arrival: ambulatory Limitations: no limitations History of Present Illness HPI Narrative: 39 yo F presents with c/o continued cough. Was seen here 5 days ago and given prednisone and albuterol inhaler. Taking OTC meds at home, such as dayquil/nyquil. Reports no relief from cough. States pulled rib, pulled upper back muscle from coughing. Has not smoked cigarettes for 6 years. Denies SOB/CP. ambulatory with steady gait. Requesting abx. All systems reviewed and negative except as noted above. Related Data Allergies Allergy/AdvReac Type Severity Reaction Status Date / Time No Known Allergies Allergy Verified 03/25/24 10:23 Review of Systems Review of Systems: CONSTITUTIONAL: Denies fever, chills, or sweats. EYES: Denies visual changes, redness, or discharge. ENT: Denies rhinorrhea, congestion, sore throat, or otalgia. CARDIOVASCULAR: Denies chest pain, palpitations, or edema. RESPIRATORY: Reports cough. Denies dyspnea. GASTROINTESTINAL: Denies abdominal pain, nausea, vomiting, or diarrhea. GENITOURINARY: Denies dysuria or hematuria. SKIN: Denies rash or itching. MUSCULOSKELETAL: Denies back pain, joint pain, or myalgia. NEUROLOGIC: Denies headache, numbness, or weakness. PSYCHIATRIC: Denies anxiety or depression. All other systems reviewed are negative, except as documented in HPI. [facility] Past Medical History Medical History No pertinent past medical history Surgical History Surgical History H/O tubal ligation History of tympanostomy tube placement Family History Family History Father Acute myocardial infarction Mother No problems noted. Sibling No problems noted. Social History Social History Smoking status: Former smoker Second hand tobacco smoke exposure: No Alcohol intake: current Substance use: never Substance use type: does not use Living arrangements: with family Gender identity (if verbalized by the patient): Female Sexual Orientation (if Verbalized by the Patient): Straight or Heterosexual Spiritual care concerns: No Comments At time of signature, agree with nursing past medical, surgical, social and family history. There is no relevant family history pertinent to the presenting complaint. Exam Narrative: GENERAL: This is a well-nourished, well-developed patient, Patient ill-appearing but in no acute distress. HEAD: normocephalic, atraumatic. EYES: PERRL. Sclera clear/white. Vision is grossly intact. EARS: External ears normal, auditory canals clear and without drainage, TMs normal without perforation. Hearing grossly intact. NOSE: External nose normal with no obvious nasal discharge, nares without redness, no rhinorrhea. THROAT: Mucous membranes moist, posterior pharynx clear. NECK: Neck supple, non-tender without lymphadenopathy, masses or thyromegaly. CARDIOVASCULAR: Regular rate and rhythm without murmurs, gallops, or rubs. RESPIRATORY: rhonchi on expiration to left upper lung field otherwise clear. Breath sounds equal bilaterally. No wheezes, rales SKIN: warm, Dry, intact with no suspicious lesions or rash, good texture and turgor. NEURO: awake, alert, and oriented to person, place and time. There were no obvious focal neurologic abnormalities. EXTREMITIES: No joint tenderness, effusion, or edema noted. Course Course Level of Care: Express Care Visit Vital Signs Vital signs: Vital Signs Temperature 36.7 C 03/25/24 10:34 Pulse Rate 87 03/25/24 10:34 Respiratory Rate 20 03/25/24 10:34 Pulse Oximetry 100 03/25/24 10:34
== END 2024-03-25 11:30 | disposition home or self-care (01) ==
PROVIDERS: Emergency Provider Nurse Practitioner Family
DX: J20.9 Acute bronchitis, unspecified (principal); Z87.891 Personal history of nicotine dependence
CPT/HCPCS: 99213; G0463

== ENCOUNTER 2024-04-04 09:33 | Emergency (ER) | payer OTHER, SELFPAY ==
[2024-04-04 09:53] VITALS: BP 113/71; PULSE 79; RESP 20; TEMP 37.1; O2SAT 100
--- NOTE | 2024-04-04 10:08 | ED.URI ---
HPI - URI/Sore Throat General Chief Complaint: Upper Respiratory Infection Stated Complaint: chest congestion,cough,SOB,indigestion Time Seen by Provider: 04/04/24 10:08 Source: patient Mode of arrival: ambulatory Limitations: no limitations History of Present Illness HPI Narrative: 39-year-old female presents with complaint of cough and shortness of breath for 3 and half weeks. Patient has been seen [facility] twice. States none of the medications that she has been prescribed are helping her. Patient also states that she is taking [id number] DayQuil NyQuil, has you several bottles, and not helping her. also takes Zyrtec daily. Patient states I am not sick. Has had bronchitis in the past this is not bronchitis. I do not have any of the sick symptoms such as body aches fever. I need help to get over his shortness of breath. I had a new house and cannot do anything around it because I am too short of breath when I am walking around. Patient reports new symptom right mid back pressure around her scapula that is constant. Denies chest pain. Has history of smoking but does not currently smoke. All systems reviewed and negative except as noted above. Related Data Allergies Allergy/AdvReac Type Severity Reaction Status Date / Time No Known Allergies Allergy Verified 03/25/24 10:23 Review of Systems Review of Systems: CONSTITUTIONAL: Denies fever, chills, or sweats. EYES: Denies visual changes, redness, or discharge. ENT: Denies rhinorrhea, congestion, sore throat, or otalgia. CARDIOVASCULAR: Denies chest pain, palpitations, or edema. RESPIRATORY: Reports cough and dyspnea. GASTROINTESTINAL: Denies abdominal pain, nausea, vomiting, or diarrhea. GENITOURINARY: Denies dysuria or hematuria. SKIN: Denies rash or itching. MUSCULOSKELETAL: Denies back pain, joint pain, or myalgia. NEUROLOGIC: Denies headache, numbness, or weakness. PSYCHIATRIC: Denies anxiety or depression. All other systems reviewed are negative, except as documented in HPI. [facility] Past Medical History Medical History No pertinent past medical history Surgical History Surgical History H/O tubal ligation History of tympanostomy tube placement Family History Family History Father Acute myocardial infarction Mother No problems noted. Sibling No problems noted. Social History Social History Smoking status: Former smoker Second hand tobacco smoke exposure: No Alcohol intake: current Substance use: never Substance use type: does not use Living arrangements: with family Gender identity (if verbalized by the patient): Female Sexual Orientation (if Verbalized by the Patient): Straight or Heterosexual Spiritual care concerns: No Comments At time of signature, agree with nursing past medical, surgical, social and family history. There is no relevant family history pertinent to the presenting complaint. Exam Narrative: GENERAL: This is a well-nourished, well-developed patient, in no apparent distress. HEAD: normocephalic, atraumatic. EYES: PERRL. Sclera clear/white. Vision is grossly intact. EARS: External ears normal, auditory canals clear and without drainage, TMs normal without perforation. Hearing grossly intact. NOSE: External nose normal with no obvious nasal discharge, nares without redness, no rhinorrhea. THROAT: Mucous membranes moist, posterior pharynx clear. NECK: Neck supple, non-tender without lymphadenopathy, masses or thyromegaly. CARDIOVASCULAR: Regular rate and rhythm without murmurs, gallops, or rubs. RESPIRATORY: Mild rhonchi to lower lung stoll otherwise clear. Breath sounds equal bilaterally. No wheezes, rales SKIN: warm, Dry, intact with no suspicious lesions or velvet
--- NOTE | 2024-04-04 10:18 | ECG_ITS ---
Test Date: 2024-04-04 10:32:26 Measurements Intervals [place] Rate: 68 P: 48 [place]: 170 QRS: 14 QRSD: 102 T: 53 QT: 387 QTc: 412 Interpretive Statements SINUS RHYTHM NORMAL ELECTROCARDIOGRAM No previous ECG available for comparison Electronically Signed On 04-05-2024 08:47:53 CDT by Antoine Riddle M.D.
== END 2024-04-04 10:38 | disposition short-term general hospital (02) ==
PROVIDERS: Emergency Provider Nurse Practitioner Family
DX: R06.00 Dyspnea, unspecified (principal); R05.9 Cough, unspecified; Z87.891 Personal history of nicotine dependence
CPT/HCPCS: 93005; 99213; G0463

== ENCOUNTER 2024-04-04 11:02 | Emergency (ER) | payer OTHER, SELFPAY ==
--- NOTE | ~2024-04-04 | XR_ITS ---
EXAMINATION: XR chest 2V 04/04/2024 11:34 INDICATION: Shortness of breath PROCEDURE: 2 view chest COMPARISON: 03/21/2024 FINDINGS: The lungs are clear. The cardiomediastinal silhouette is within normal limits. There are no pleural effusions. There is no pneumothorax suspected. IMPRESSION: 1: NO ACUTE CARDIOPULMONARY DISEASE. Reviewed, dictated and finalized at location B.
[2024-04-04 11:05] VITALS: BP 147/89; PULSE 83; RESP 20; TEMP 36.4; O2SAT 99
[2024-04-04 11:14] VITALS: O2SAT 96
[2024-04-04 11:18] VITALS: BP 121/83; PULSE 77; RESP 16; TEMP 36.4; O2SAT 97
[2024-04-04 12:11] LABS: Influenza A QL RT-PCR Negative (Negative); Influenza B QL RT-PCR Negative (Negative); RSV RNA, RT-PCR Negative (Negative); SARS-CoV-2 RNA PCR Negative (Negative)
[2024-04-04 13:06] VITALS: PULSE 69; RESP 14; TEMP 36.6; O2SAT 99
--- NOTE | 2024-04-04 13:09 | ED.GENADULT ---
HPI - General Adult General Chief complaint: Upper Respiratory Infection Stated complaint: SOB, cough, URI symptoms x 3 weeks Time Seen by Provider: 04/04/24 11:09 History of Present Illness HPI narrative: 39-year-old female presenting to the emergency department for evaluation cough and congestion this then ongoing for the past 3 weeks. Patient was on a course of azithromycin approximately week ago and states that her symptoms have worsened. Patient used to be smoker but no longer smokes. Patient states she does have prior history of bronchitis but states this feels worse. Related Data Allergies Allergy/AdvReac Type Severity Reaction Status Date / Time No Known Allergies Allergy Verified 04/04/24 12:35 Review of Systems Review of Systems: All systems reviewed & are unremarkable except as noted in HPI and below PMFSH Past Medical History Medical History No pertinent past medical history Surgical History Surgical History H/O tubal ligation History of tympanostomy tube placement Family History Family History Father Acute myocardial infarction Mother No problems noted. Sibling No problems noted. Social History Social History Smoking status: Former smoker Second hand tobacco smoke exposure: No Alcohol intake: current Substance use: never Substance use type: does not use Living arrangements: with family Gender identity (if verbalized by the patient): Female Sexual Orientation (if Verbalized by the Patient): Straight or Heterosexual Spiritual care concerns: No Exam Narrative: APPEARANCE: Well appearing, no pain, no distress, well-nourished. HEAD: normocephalic, atraumatic. EYES: PERRLA/EOMI, conjunctivae clear. NOSE: Normal no drainage EARS:TMS clear with good light reflex. THROAT: Pharynx clear, no exudate. NECK: Supple. No adenopathy, no masses. RESPIRATORY: Airway patent, respirations nonlabored. Clear to auscultation bilaterally, no rales, rhonchi, wheezing. CARDIOVASCULAR: Regular rate and rhythm without murmurs rubs or gallops. ABDOMINAL: Soft, nontender, nondistended, normal bowel sounds MUSCULOSKELETAL: Moves all extremities. Strength/ROM intact, No edema, No calf tenderness. NEURO: Alert. Cranial nerves II through XII intact. Good gait. Good coordination SKIN: Warm, dry. Normal Color Course Vital Signs Vital signs: Vital Signs Temperature 97.6 F 04/04/24 11:05 Pulse Rate 83 04/04/24 11:05 Respiratory Rate 20 04/04/24 11:05 Blood Pressure 147/89 H 04/04/24 11:05 Pulse Oximetry 99 04/04/24 11:05 Oxygen Delivery Room Air 04/04/24 11:05 Temperature 97.9 F 04/04/24 13:06 Pulse Rate 69 04/04/24 13:06 Respiratory Rate 14 04/04/24 13:06 Blood Pressure 121/83 04/04/24 11:18 Pulse Oximetry 99 04/04/24 13:06 Oxygen Delivery Room Air 04/04/24 11:14 Medical Decision Making MDM Narrative Medical decision making narrative: 39-year-old female presents emergency department for evaluation for cough and congestion it has been going on for a number of weeks. X-ray was negative for acute pneumonia. Due to the duration of her illness patient is being started on Augmentin and a azithromycin for possible super bacterial infection. Patient was updated the results of her workup patient was comfortable plan for discharge and close follow-up. Differential Diagnosis Differential Diagnosis: COVID, influenza, RSV, pneumonia Vital Signs Vital Signs: Vital Signs Temperature 97.6 F 04/04/24 11:05 Pulse Rate 83 04/04/24 11:05 Respiratory Rate 20 04/04/24 11:05 Blood Pressure 147/89 H 04/04/24 11:05 Pulse Oximetry 99 04/04/24 11:05 Oxygen Delivery Room Air 04/04/24 11:05 Temperature 97.9 F 1
[2024-04-04] MEDS: AMOXICILLIN/CLAVULANATE K 875-125 MG TAB 1 TABLET PO (13:23)
[2024-04-04] MEDS: AZITHROMYCIN 250 MG TABLET 500 MG PO (13:23)
== END 2024-04-04 13:33 | disposition home or self-care (01) ==
PROVIDERS: Emergency Provider Emergency Medicine
DX: J18.9 Pneumonia, unspecified organism (principal); Z20.822 Contact with and (suspected) exposure to COVID-19; Z87.891 Personal history of nicotine dependence
CPT/HCPCS: 71046; 87637; 93005; 94664; 99283; A9270

== ENCOUNTER 2025-03-04 18:18 | Emergency (ER) | payer OTHER, SELFPAY ==
--- NOTE | ~2025-03-04 | CT_ITS ---
CT abdomen pelvis w con Clinical History: abdominal pain . Comparison: 03/25/2020 Technique: Axial images lung bases to symphysis pubis IV contrast information not listed in PACS Coronal, sagittal reformats CT images acquired with automatic exposure control for dose reduction DLP: 748 mGy-cm Findings: Lung bases: Clear. Visualized heart and pericardium: Unremarkable. Liver: Enlarged. Steatosis. Gallbladder: Removed. Spleen: Unremarkable. Pancreas: Unremarkable. Adrenal glands: Unremarkable. Kidneys: Right kidney- No hydronephrosis. No renal stones. Left kidney- No hydronephrosis. No renal stones. Distal esophagus/stomach: Unremarkable. Small bowel loops: Normal caliber and wall thickness. Colon: Diverticula. Normal caliber and wall thickness. Normal RLQ appendix. Nodes: No enlarged nodes. Peritoneum: No ascites. No free air. Urinary bladder: Unremarkable. Uterus: Several fibroids. Adnexa: No masses. Bones: No acute bony abnormality. Soft tissues: Unremarkable. Aorta: No aneurysm or dissection. IVC: Unremarkable. Main portal vein/SMV/splenic vein: Patent. IMPRESSION: 1. No acute findings. Reviewed, dictated and finalized at location R. IMPRESSION: 1. No acute findings.
--- NOTE | 2025-03-04 18:22 | ECG_ITS ---
Test Date: 2025-03-04 19:14:18 Measurements Intervals [place] Rate: 65 P: 27 SD: 179 QRS: 22 QRSD: 85 T: 46 QT: 407 QTc: 424 Interpretive Statements SINUS RHYTHM NORMAL ECG Compared to ECG 04/04/2024 10:32:26 No significant changes Electronically Signed On 03-05-2025 08:08:26 CDT by Jose G Padilla M.D.
[2025-03-04 18:25] VITALS: BP 147/93; PULSE 73; RESP 20; TEMP 36.9; O2SAT 99
[2025-03-04 19:02] LABS: Hematocrit 43.3 % (35.0-49.0); Hemoglobin 14.0 g/dL (12.0-15.0); Immature Granulocyte Percent A 0.3 % (0.0-0.0); Lymphocytes Absolute Auto 3.29 K/mm3 (1.10-4.50); Mean Corpuscular HGB Conc 32.3 g/dL (32-36); Mean Corpuscular Hemoglobin 27.4 pg (27.0-31.0); Mean Corpuscular Volume 84.7 fL (78.0-102.0); Nucleated Red Blood Cells Absolute Auto 0.00 K/mm3 (0.00-0.00); Nucleated Red Blood Cells Perc 0.0 % (0-0.0); Platelet Count Result 361 K/mm3 (150-420); Red Blood Count 5.11 M/mm3 (4.20-5.40); White Blood Count 11.1 K/mm3 (4.8-10.8)
[2025-03-04] MEDS: SODIUM CHLORIDE 0.9% IV 1,000 ML 999 ML IV CONT (19:02)
[2025-03-04] MEDS: ONDANSETRON INJ 4 MG/2 ML VIAL IV PUSH (19:03)
[2025-03-04] MEDS: KETOROLAC 30 MG/ML VIAL (*BKC) IV PUSH (19:04)
[2025-03-04] MEDS: PANTOPRAZOLE SODIUM IV 40 MG VIAL IV PUSH (19:04)
--- NOTE | 2025-03-04 19:05 | PC.NURSE ---
Pt report received from TRUE Otto for continuation of care on night manager.
[2025-03-04 19:14] LABS: Alanine Aminotransferase 48 U/L (6-35); Albumin Level 4.9 g/dL (3.5-5.1); Alkaline Phosphatase 74 U/L (38-126); Anion Gap 13 mmol/L (4-12); Aspartate Amino Transferase 40 U/L (14-36); Bilirubin,Total 0.5 mg/dL (0.2-1.3); Blood Urea Nitrogen 10 mg/dL (7-17); Calcium 9.7 mg/dL (8.4-10.2); Carbon Dioxide 22 mmol/L (22-30); Chloride 105 mmol/L (98-107); Estimated CRCL calculation 97 ml/min; Estimated Glomerular Filt Rate > 60; Glucose 96 mg/dL (65-110); Lipase 110 U/L (23-300); Osmolality Calculated 289 mOsm/kg (285-295); Potassium 4.1 mmol/L (3.4-5.0); Sodium 140 mmol/L (137-145)
[2025-03-04 19:15] LABS: Total Protein > 11.0 g/dL (6.3-8.2)
[2025-03-04 19:17] LABS: INR 0.9; Partial Thromboplastin Time 28.7 Sec (23.9-30.70); Prothrombin Time 9.8 Seconds (9.50-12.1)
--- NOTE | 2025-03-04 19:20 | PC.NURSE ---
pt ambulatory to bathroom at this time, ivf infusing. urine specimen collected. call light within reach and pt given warm blanket.
--- NOTE | 2025-03-04 19:24 | ED_ITS ---
HPI - Abdominal Pain General Chief Complaint: Abdominal Pain Stated Complaint: indigestion Time Seen by Provider: 03/04/25 18:21 Source: patient Mode of arrival: ambulatory Limitations: no limitations History of Present Illness HPI narrative: this is a 40 which do old female with no significant past medical history presents with a 2 day history of abdominal pain with some bloating diffuse worse today with some nausea no vomiting no diarrhea constipation no fever chills no chest pain or shortness of breath. MD elicited complaint: abdominal pain Onset (ago): day(s) Pain Consistency: constant Location: diffuse Severity: moderate Pain scale (0-10): 6 Quality: aching and fullness Migration to: no migration Related Data Allergies Allergy/AdvReac Type Severity Reaction Status Date / Time No Known Allergies Allergy Verified 03/04/25 19:14 Review of Systems 2 Review of Systems: All systems reviewed & are unremarkable except as noted in HPI and below PMFSH Past Medical History Medical History No pertinent past medical history Surgical History Surgical History History of tympanostomy tube placement H/O tubal ligation Family History Family History Father Acute myocardial infarction Mother No problems noted. Sibling No problems noted. Social History Social History Smoking status: Former smoker Second hand tobacco smoke exposure: No Alcohol intake: current Substance use: never Substance use type: does not use Living arrangements: with family Gender identity (if verbalized by the patient): Female Sexual Orientation (if Verbalized by the Patient): Straight or Heterosexual Spiritual care concerns: No Exam 2 Const: General: healthy appearing and no acute distress Nutritional Appearance: well nourished Orientation/consciousness: patient oriented x3 Limitations: no limitations HENMT: Head: normal to inspection Neck: Neck: normal visual inspection, no lymphadenopathy and no meningeal signs Chest: Chest palpation & inspection: normal inspection of the chest Resp: Effort & Inspection: normal respiratory effort Auscultation: clear to auscultation bilaterally Cardio: Rate: regular rate Rhythm: regular rhythm GI: GI Palp: Yes Soft to palpation and Yes Tenderness to palpation present (GI) : General: Yes bladder normal to palpation Back/Spine/Pelvis: Back: no CVA tenderness Skin: General skin exam: normal color Rashes: no rashes Wounds: no wounds Neuro: General: patient oriented x3, moves all extremities and no meningeal signs Extrem: General: normal to inspection, no clubbing, cyanosis or edema and no pedal edema Course Course Emergency Course: EKG performed shows a normal sinus rhythm, patient received IV fluids IV 30mg of ketorolac and Protonix as well as Zofran labs reviewed showed no acute abnormalities CT scan of the abdomen pelvis performed and reviewed with patient. Vital Signs Vital signs: Vital Signs Temperature 36.9 C 03/04/25 18:25 Pulse Rate 73 03/04/25 18:25 Respiratory Rate 20 03/04/25 18:25 Blood Pressure 147/93 H 03/04/25 18:25 Pulse Oximetry 99 03/04/25 18:25 Oxygen Delivery Room Air 03/04/25 18:25 Temperature 36.4 C L 03/04/25 20:36 Pulse Rate 60 03/04/25 20:36 Respiratory Rate 20 03/04/25 20:36 Blood Pressure 132/79 03/04/25 20:36 Pulse Oximetry 98 03/04/25 20:36 Oxygen Delivery Room Air 03/04/25 20:36 MDM - Abdominal Pain Lab Data 03/04/25 18:59 03/04/25 18:59 Labs: Lab Results 03/04/25 03/04/25 Range/Units 18:59 19:23 WBC 11.1 H (4.8-10.8) K/mm3 RBC 5.11 (4.20-5.40) M/mm3 Hgb 14.0 (12.0-15.0) g/dL Hct 43.3 (35.0-49.0) % MCV 84.7 (78.0-102.0) fL MCH 27.4 (27.0-31.0) pg MCHC 32.3 (32-36) g/dL RDW 12.2 (11.6-14.4) % Plt Count 361 (150-420) K/mm3 MPV 10.2 (9.2-11.8) fl Immature Gran % (Auto) 0.3 H (0.0-0.0) % Neut % (Auto) 60.8 (50.0-70.0) % Lymph % (Auto) 29.7 (18.0-42.0) % [place] % (Auto) 6.9 (2.0-11.0) % Eos % (Auto) 1.9 (1.0-6.0) % Baso % (Auto) 0.4 (0.0-1.0) % Lymph # (Auto) 3.29 (1.10-4.50) K/mm3 [place] # (Auto) 0.77 (0.10-0.90) K/mm3 Eos # (Auto) 0.21 (0.02-0.50) K/mm3 Baso # (Auto) 0.04 (0.00-0.10) K/mm3 Abs Immat Gran (auto) 0.03 H (0.00-0.00) K/mm3 Absolute Neuts (auto) 6.74 (1.70-7.20) K/mm3 Absolute Nucleated RBC 0.00 (0.00-0.00) K/mm3 Nucleated RBC % 0.0 (0-0.0) % PT 9.8 (9.50-12.1) Seconds INR 0.9 APTT 28.7 (23.9-30.70) Sec Sodium 140 (137-145) mmol/L Potassium 4.1 (3.4-5.0) mmol/L Chloride 105 (98-107) mmol/L Carbon Dioxide 22 (22-30) mmol/L Anion Gap 13 H (4-12) mmol/L BUN 10 (7-17) mg/dL Creatinine 0.67 L (0.7-1.0) mg/dL Estim Creat Clear Calc 97 ml/min Estimated GFR > 60 (59 - ) Glucose 96 (65-110) mg/dL Calculated Osmolality 289 (285-295) mOsm/kg Lactic Acid 0.9 (0.4-2.0) mmol/L Calcium 9.7 (8.4-10.2) mg/dL Total Bilirubin 0.5 (0.2-1.3) mg/dL AST 40 H (14-36) U/L ALT 48 H (6-35) U/L Alkaline Phosphatase 74 (38-126) U/L Total Protein > 11.0 H (6.3-8.2) g/dL Albumin 4.9 (3.5-5.1) g/dL Lipase 110 (23-300) U/L Urine Color Light yellow (Yellow) Urine Appearance Clear (Clear) Urine pH 7.0 (5.0-8.0) Ur Specific [place] <= 1.005 L (1.010-1.020) Urine Protein Negative (Negative) Urine Glucose (UA) Negative (Negative) Urine Ketones Negative (Negative) Ur Blood (Man) Negative (Negative) Urine Nitrate Negative (Negative) Urine Bilirubin Negative (Negative) Urine Urobilinogen 0.2 (0.2-1.0) mg/dL Leukocyte Esterase Rfl Negative (Negative) TRANG/UL Urine Test Negative Imaging Data Radiologist's impression: ITS Impressions Abdomen/Pelvis CT 03/04/25 19:44 IMPRESSION: 1. No acute findings. Critical Care Time Critical Care Time Critical Care Time: No Discharge Plan Discharge Clinical Impression: Abdominal pain, Gastritis Patient Disposition: Home Condition: Stable Instructions: Antibiotic Form, Gastritis (ED), Abdominal Pain (ED) Additional Instructions: advised patient to take medication as prescribed and follow up with primary within next schedule appointment. Patient Language: Upper Sorbian Prescriptions: New tramadol 50 mg tablet 50 mg PO Q6H PRN (Reason: pain) Qty: 20 0RF pantoprazole [Protonix] 40 mg tablet,delayed release (DR/EC) 40 mg PO QAM 28 Days Qty: 28 0RF ondansetron 4 mg tablet,disintegrating 4 mg PO Q6H PRN (Reason: nausea and vomiting) Qty: 14 0RF Follow-up/Referrals: Erin Sweet APRN [Primary Care Provider, Family Practice] Time of Disposition: 20:16
[2025-03-04 19:27] LABS: Add Urine Microscopic? NO; Appearance Urine Clear (Clear); Glucose Urine UA Negative (Negative); Leukocyte Esterase Ur Negative LEU/UL (Negative); Nitrate Urine Negative (Negative); Specific Grav Ur <= 1.005 (1.010-1.020)
[2025-03-04 19:29] LABS: Pregnancy On Board Control Positive
[2025-03-04 20:36] VITALS: BP 132/79; PULSE 60; RESP 20; TEMP 36.4; O2SAT 98
--- NOTE | 2025-03-09 12:18 | PC.NURSE ---
PRELIMINARY BLOOD CULTURE REPORT; NO GROWTH IN 48 HOURS.
--- NOTE | 2025-03-12 12:41 | PC.NURSE ---
FINAL BLOOD CULTURE NO AEROBIC OR ANAEROBIC GROWTH IN FIVE DAYS
== END 2025-03-04 20:45 | disposition home or self-care (01) ==
PROVIDERS: Emergency Provider Emergency Medicine; PCP Nurse Practitioner Family
DX: K29.70 Gastritis, unspecified, without bleeding (principal); Z87.891 Personal history of nicotine dependence
CPT/HCPCS: 36415; 74177; 80053; 81003; 81025; 83605; 83690; 85025; 85610; 85730; 87040; 93005; 96361; 96374; 96375; 99284; J1885; J2405; J2470; J7030; Q9967

== ENCOUNTER 2025-03-29 09:33 | Outpatient (CLI) | payer OTHER, SELFPAY ==
[2025-03-29 09:53] LABS: Hematocrit 42.9 % (35.0-49.0); Hemoglobin 14.0 g/dL (12.0-15.0); Immature Granulocyte Percent A 0.1 % (0.0-0.0); Lymphocytes Absolute Auto 2.08 K/mm3 (1.10-4.50); Mean Corpuscular HGB Conc 32.6 g/dL (32-36); Mean Corpuscular Hemoglobin 27.6 pg (27.0-31.0); Mean Corpuscular Volume 84.6 fL (78.0-102.0); Nucleated Red Blood Cells Absolute Auto 0.00 K/mm3 (0.00-0.00); Nucleated Red Blood Cells Perc 0.0 % (0-0.0); Platelet Count Result 346 K/mm3 (150-420); Red Blood Count 5.07 M/mm3 (4.20-5.40); White Blood Count 7.2 K/mm3 (4.8-10.8)
--- OUTSIDE RECORDS SUMMARY | 2025-03-29 10:10 | XMS_ITS | Clinical Summary ---
Author Organization [facility] Address [address] [place] [address] Care Team Providers Care Aircraft Maintenance Supervisor Name Role Phone Pedro LuisSusy garg Primary Care Provider [phone] MargothSusy Unavailable [phone] Source Comments [facility],non-owned Affiliates and Associated Physician Practices is amultiple site organization consisting of ambulatory clinics and hospital sitesin [place], [place], [place] and [place]. This disclosure is being madepursuant to the Care Everywhere program and may not contain all information available regarding this patient. Last updated 18.[facility] Allergies Active Allergy Reactions Criticality Noted Date Comments Penicillins Other 04/22/2018 Doesn't work on her Medications * Be aware that medications may not be up to date on this document. Alwaysverify current medications with the patient. mometasone (ELOCON) 0.1 % creamIndications :Rash and other nonspecific skin eruption Apply to affected area on arm once daily. 30 days supply. 45 g 8 Active Additional Information Patient not taking.Reported on 09/15/2021 doxycycline hyclate (VIBRAMYCIN) 100 MG tabletIndication s:Other specified follicular disorders Take 1 (one) tablet by mouth 2 times daily 60 tablet 2 2 Active clindamycin (CLEOCIN) 1 % lotionIndication s:Other specified follicular disorders Apply to affected tender lesions daily as needed. 30 day supply. 60 mL 2 2 Active mupirocin (BACTROBAN) 2 % ointmentIndicati ons:Other specified follicular disorders Apply to affected area and as directed to skin folds BID x 5 days. 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 (F LUZONE; FLULAVAL; FLUARIX; AFLURIA QUADRIVALENT; 6MO+), 0.5 ML (IIV4) 04/17/2018 TD (ADULT), 5 LF TETANUS TOXOID, ADSORBED, PF Family History Medical History Relation Name Comments CAD (Coronary Artery Disease) Father from [place] age 44 Brain Tumor Maternal Grandmother Asthma Neg Hx CVA Neg Hx Cancer - Breast Neg Hx Cancer - Other Neg Hx Cancer - Skin, Melanoma Neg Hx Cancer - Skin, Non Melanoma Neg Hx Eczema Neg Hx Hemophilia Neg Hx Psoriasis Neg Hx Relation Name Status Comments Father Maternal Grandmother Social History Tobacco Use Types Packs/Day Years Used Date Smoking Tobacco: Never Cigarettes 1 15 Smokeless Tobacco: Never Alcohol Use Standard Drinks/Week Comments No 0 (1 standard drink = 0.6 oz pur e alcohol) Comments No Sex and Gender Information Value Date Recorded Sex Assigned at Not on file 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 Gender Identity Not on file Sexual Orientation Not on file Last Filed Vital Signs Vital Sign Reading Time Taken Comments Blood Pressure 130/90 04/17/2018 3:07 PM CDT Pulse - - Temperature 36.4 C (97.5 F) 04/17/2018 3:07 PM CDT Respiratory Rate - - Oxygen Saturation - - Inhaled Oxygen Concentration - - Weight 86.2 kg (190 lb) 04/17/2018 3:07 PM CDT Height 152.4 cm (5') 04/17/2018 3:07 PM CDT Body Mass Index 37.11 04/17/2018 3:07 PM CDT Plan of Treatment Health Maintenance Due Date Last Done Comments LIPID TESTING 1984 MAMMOGRAM 1984 HIV SCREENING 01/10/1999 HEPATITIS C SCREENING 01/06/2002 HEPATITIS B VACCINE (1 of 3 - 19+ 3-dose series) 01/10/2003 HPV VACCINE (1 - 3-dose SCDM series) 01/10/2011 DEPRESSION SCREENING 06/17/2024 COVID-19 VACCINE (1 - 2023-2 5 season) 2025 INFLUENZA VACCINE (#1) 2025 04/17/2018 DTAP/TDAP/TD VACCINES (2 - T d or Tdap) 04/17/2028 04/17/2018 ZOSTER VACCINE (1 of 2) 01/10/2034 HIB VACCINE Aged Out No longer eligi ble based on patient's age to complete this topic MENINGOCOCCAL (Group B) VACC INE SHARED DECISION-MAKING Aged Out No longer eligibl e based on patient's age to complete this topic MENINGOCOCCAL GROUPS A/C/Y/W VACCINE Aged Out No longer eligible b ased on patient's age to complete this topic PNEUMOCOCCAL VACCINE Aged Out No long er eligible based on patient's age to complete this topic Insurance [facility] Care Teams Aircraft Maintenance Supervisor Relationship Specialty Start Date End Date Susy Justin DO [address] [place] [address] PCP - General 04/17/18 Susy Justin DO [address] [place] [address] Resident - PCP Internal Medicine 04/17/18
--- OUTSIDE RECORDS SUMMARY | 2025-03-29 10:10 | XMS_ITS | Data Portability ---
Author Organization [facility] [place] Address [address] [place] [address] Assessment No assessment recorded. Plan of Treatment Reminders Order Date Submit Date Provider Last Modified By Organization Details Last Modified Time Details Appointments None recorded . Lab urinalys is, dipstick 2021 022 [facility], [address], [place], [address], 10:32:[address] referral - Constipa tion Please contact this patient to schedule an appointm ent Attached are the patients demograp hics and most recent office visit notes. If you have question s, please contact me at [phone]. Thank you, Maritza, Referral 's 2021 022 [facility]astroenter[facility], [address], [address], [place], [address], 14:49:12 urologis t referral - Increase d frequenc y of urinatio n Please contact this patient to schedule an appointm ent. Attached are the patients demograp hics and most recent office visit notes. If you have any question s, please contact me at [phone]. Thank you, Maritza, Referral 's 2021 022 [facility], [address] [place] [address], [id number], 14:49:13 Procedures None recorded . Surgeries None recorded . Imaging US, pelvis 2021 [email or web address] [place], [address], [place], [address], 21:42:57 US, transvag inal 2021 [email or web address] [place], [address], [place], [address], 21:42:57 Medication Orders fluconaz ole 150 mg tablet 2021 [id number], [address], [place], [place], [id number], 09:50:24 metronid azole 500 mg tablet 2021 [facility] #[id number], [address], [place], [place], [id number], 09:50:31 nystatin -triamci nolone 100,000 unit/gra m-0.1 % topical ointment 2021 [id number], [address], [place], [id number], 17:02:14 Patient TargetsNo targets recorded. Patient InstructionsNo instructions recorded. Reason for Referral Valve Tester Referral for Constipation Constipation ConstipationPlease contact this patient to schedule an appointmentAttached are the patients demographics and most recent office visit notes.If you have questions, please contact me at [phone].Thank you,Stuart Salas's Referring Physician: Anamaria Tinsley, BELT LOOP MACHINE OPERATOR, Encounter Date: 02/08/2022 Urologist Referral for Incre ased frequency of urination Increased frequency of urinationPlease contact this patient to schedule an appointment.Attached are the patients demographics and most recent office visit notes.If you have any questions, please contact me at [phone].Thank you,Stuart Salas's Referring Physician: Anamaria Tinsley, BELT LOOP MACHINE OPERATOR, Encounter Date: 02/08/2022 Results Created Date Observation Date Name Description Value Unit Range Abnormal Flag Note LastModifiedBy Organization Detail LastModifiedTime 01/19/20 22 01/18/2022 VAGIN ITIS/ VAGIN OSIS, DNA PROBE deepa sp. detection, direct probe Negati ve negati ve Not Available [facility] [address] [place] [address], [phone], 01/19/2022 14:03:52 01/19/20 22 01/18/2022 VAGIN ITIS/ VAGIN OSIS, DNA PROBE gardnerella vag. detection, direct probe Negati ve negati ve Not Available [facility] [address] [place] [address], [id number], 01/19/2022 14:03:52 01/19/20 22 01/18/2022 VAGIN ITIS/ VAGIN OSIS, DNA PROBE trichomonas vag. detection, direct probe Negati ve negati ve Not Available [facility] [address] [place] [address], [id number], 01/19/2022 14:03:52 01/19/20 22 01/18/2022 CT/GC AND TRICH OMONA S VAGIN DEE (RRNA ), SWAB chlamydia trachomatis, PCR Negati ve negati ve Not Available [facility] [address] [place] [address], [id number], 01/19/2022 14:03:53 01/19/20 22 01/18/2022 CT/GC AND TRICH OMONA S VAGIN DEE (RRNA ), SWAB neisseria gonorrhoeae, PCR Negati ve negati ve Not Available [facility] [address] [place] [address], [place], [address], 01/19/2022 14:03:53 01/19/20 22 01/18/2022 CT/GC AND TRICH OMONA S VAGIN DEE (RRNA ), SWAB trichomonas vaginalis ribosomal RNA (rrna) Negati ve negati ve Not Available [facility] [address] [place], [address], 01/19/2022 14:03:53 02/09/20 22 02/08/2022 CULTU RE: URINE result report SEE RESULT S BELOW Test: Cultu re: Urine Speci men Sourc e: Urine Voide d Speci men Type: Urine Speci men Date: 2021 12:53 PM Resul t Date: 2021 6:11 AM Resul t Statu s: Final resul t Abnor mal: No Resul ting Lab: [facility] [address] [facility] [address] Tel: CULTU RE ----- ----- ----- --- No growt h in 1 day (dete ction level of 10,00 0 colon ies / ml.) Not Available [facility] [address] [place], [address], 02/10/2022 07:13:32 02/09/20 22 02/08/2022 urina lysis , dipst ick Leukocytes neg Not Available Omar eaton [address], [place], [address], 02/08/2022 10:30:00 02/09/20 22 02/08/2022 urina lysis , dipst ick Nitrite neg Not Available [place] [address], [place], [address], 02/08/2022 10:30:00 02/09/20 22 02/08/2022 urina lysis , dipst ick Urobilinogen neg Not Available Dee squires [address], [place], [address], 02/08/2022 10:30:00 02/09/20 22 02/08/2022 urina lysis , dipst ick Protein neg Not Available [place] [address], [place], [address], 02/08/2022 10:30:00 02/09/20 22 02/08/2022 urina lysis , dipst ick pH 7 Not Available [place] [address], [place], [address], 02/08/2022 10:30:00 02/09/20 22 02/08/2022 urina lysis , dipst ick Specific [place] 1.010 Not Available [facility] yuliya [address], [place], [address], 02/08/2022 10:30:00 02/09/20 22 02/08/2022 urina lysis , dipst ick Ketone neg Not Available [place] [address], [place], [address], 02/08/2022 10:30:00 02/09/20 22 02/08/2022 urina lysis , dipst ick Bilirubin neg Not Available [facility] [address], [place], [address], 02/08/2022 10:30:00 02/09/20 22 02/08/2022 urina lysis , dipst ick Glucose neg Not Available [place] [address], [place], [address], 02/08/2022 10:30:00 02/09/20 22 02/08/2022 urina lysis , dipst ick Appearance clear Not Available [facility] [address], [place], [address], 02/08/2022 10:30:00 02/09/20 22 02/08/2022 urina lysis , dipst ick Color yellow Not Available [place] [address], [place], [address], 02/08/2022 10:30:00 02/07/20 22 02/06/2022 US, pelvi s No observ ation record ed. [email or web address] [place] [address], [place], [address], 02/06/2022 10:09:07 02/07/20 22 02/06/2022 US, trans vagin al No observ ation record ed. [email or web address] [place] [address], [place], [address], 02/06/2022 10:09:20 02/07/20 22 02/06/2022 US, pelvi s No observ ation record ed. janiya Burnett [address], [place], [address], 02/08/2022 10:41:56 Result Notes None recorded. Procedures Surgical History Date Name Laterality Status Provider Name and Address Organization Details Recorded Time 08/16/19 22 Endometrial Ablation completed Porsche Prince [facility] 01/18/2022 16:46:38 Imaging Results None recorded. Procedure Notes None recorded. Medical Equipment None Reported. Allergies No known drug allergies Medications Name Sig Start Date Stop Date Status Note LastModified by Organization Details LastModified Time fluconazole 150 mg tablet TAKE 1 TABLET BY MOUTH NOW. REPEAT IN 7 DAYS IF SYMPTOMS PERSIST 02/08 completed Not Available Not Available Not Available hydrocodone 5 mg-acetamin ophen 325 mg tablet TAKE 1-2 TABLETS BY MOUTH EVERY 4 HOURS NEEDED FOR PAIN 01/18 completed Not Available Not Available Not Available metronidazo le 500 mg tablet TAKE 1 TABLET BY MOUTH EVERY 12 HOURS FOR 7 DAYS 02/08 completed Not Available Not Available Not Available nystatin-tr iamcinolone 100,000 unit/gram-0 .1 % topical ointment APPLY TO THE AFFECTED AREA(S) BY TOPICAL ROUTE 2 TIMES PER DAY FOR 5 DAYS 2021 active Not Available Not Available Not Avai lable benzonatate 100 mg capsule TAKE 1 CAPSULE BY MOUTH TWICE DAILY NEEDED FOR COUGH 01/18 completed Not Available Not Available Not Available doxycycline monohydrate 100 mg capsule TAKE 1 CAPSULE BY MOUTH TWICE DAILY FOR 7 DAYS 01/18 completed Not Available Not Available Not Available mupirocin 2 % topical ointment APPLY TO AFFECTED AREA AND DIRECTED TO SKIN FOLDS TWICE DAILY FOR 5 DAYS. active Not Available Not Available No t Available diclofenac sodium 50 mg tablet,radha yed release TAKE 1 TABLET BY MOUTH 3 TIMES A DAY NEEDED FOR PAIN 01/18 completed Not Available Not Available Not Available ibuprofen 600 mg tablet 02/08 completed Not Available Not Available Not Available doxycycline hyclate 100 mg tablet TAKE 1 TABLET BY MOUTH TWICE DAILY 01/18 completed Not Available Not Available Not Available Hibiclens 4 % topical liquid MAY USE TO WASH AREA 3 - 4 TIMES WEEKLY FOR SKIN INFECTION . MAY USE EVERY DAY IF NEEDED. 02/08 completed Not Available Not Available Not Available clindamycin 1 % lotion APPLY TO AFFECTED TENDER LESIONS DAILY NEEDED 01/18 completed Not Available Not Available Not Available ciprofloxac in 0.3 %-dexametha sone 0.1 % ear drops,suspe nsion INSTILL 4 DROPS INTO EACH EAR EVERY 12 HOURS FOR 7 DAYS 01/18 completed Not Available Not Available Not Available Vitals Date Recorded Body height Body mass index (BMI) Body weight Systolic And Diastolic Provider Name and Address Organization Details Last Updated DateTime 01/18/2022 152.4 cm 35 kg/m2 00704.75 g 118/81 mm[Hg] [facility] 01/18/2022 16:39:43 Date Recorded Body height Body mass index (BMI) Body weight Systolic And Diastolic Provider Name and Address Organization Details Last Updated DateTime 02/08/2022 152.4 cm 35.5 kg/m2 71300.37 g 126/82 mm[Hg] [facility] 02/08/2022 09:50:20 Social History None recorded. Functional Status None recorded. Mental Status None recorded. Family History Nothing Reported. Medical History Condition Response Allergies (Food, seasonal, environmental ) N Other N Breast Cancer N Drug/Latex Allergies/Reactions N Blood Transfusion N Dermatologic Disorders N Lung Disease N Defects or Inherited Disease N Breast Problem N Gestational Diabetes N Hematologic disorders N Anesthesia Complications N History of STI N Deep Vein Thrombosis N Polycystic ovary syndrome N Anxiety Disorder N Autoimmune disease N Arthritis N Infertility N Polyps N Acid Reflux (GERD) N History of abnormal pap N Cancer N Stroke N Varicosities N Neurologic/Epilepsy N Endometriosis N High Cholesterol N Headaches N Fibromyalgia N Kidney Disease N Heart Problems N Kidney or Bladder Problems N Thyroid Problems N GI Problems N Eating Disorder N Anemia N Art (IVF or FET) N Psychiatric Illness N Ovarian Cancer N Diabetes N Pulmonary (TB, Asthma) N Hepatitis/Liver Disease N No Past Medical History N Eczema N Urinary Tract Infection N Abuse/Domestic Violence N Asthma N Trauma/Violence N Depression/ depression N Heart Disease N Pre-Eclampsia N Hypertension N Osteoporosis N Thrombophilias N Gynecological History Statement/Question Response Are cycles usually normal N Flow Light Date of LMP 12/29/2021 Sexually Active? Y STIs/STDs Y HPV Vaccine N Sexual Problems? N Current Control Method Tubal Ligat ion LMP Approximate Obstetrics History GPAL:G 2 P 0 0 0 2 Type Value Living 2 Total 2 Past Encounters Encounter ID Performer Location Encounter Start Date Encounter Closed Date Diagnosis/Indication Diagnosis SNOMED-CT Code Diagnosis ICD10 Code Diagnosis IMO Codes Diagnosis Note [id number] DAR Whyte [place] [address] [address] 01/18/2022 16:22:38 01/18/2022 17:21:20 Vaginitis 22480062 N76.0 Suspect BV/yeast on examSTI endocervic al testing sentBlood STI testing declinedVa ginitis panel sentTreatm ent for BV/Yeast sentVulvar care guidelines discussed in-depthDi scontinue use of vaginal washes/pro ductsShe will monitor pelvic cramping that comes and goes for now, to call the office if this continues for further imaging/te sting. May be related to menses. Time spent in visit is a total of 30 mins with at least 50% of visit consisting of counseling and review of plan of care.To call the office if symptoms persist past treatment Venereal d isease screening 589138769 Z11.3 [id number] Samuel Gonzalez MD [place] [address] [address] 02/06/2022 09:27:58 02/06/2022 10:15:28 Pain in pelvis 82637569 R10.2 [id number] DAR Whyte [place] [address] [address] 02/08/2022 09:43:28 02/08/2022 10:49:12 Pain in pelvis 92164064 R10.2 Hx: endometria l ablation 08/2021, [facility] 2015Patien t has long standing history of pelvic pains, recently worseningH as had negative STI testingNeg ative paps at outside facility per patientPel shona u/s showed a likely small fibroid and right ovarian nodule, about 5mm in sizeWe discussed need to repeat u/s in 8 weeks for f/u on ovarian noduleWe discussed urinary frequency - UA today unremarkab le, culture sent to r/o infectionS hould limit caffeine, carbonatio n, citrus, juice, etc. As these are all bladder stimulants .Possible IC/PBS on exam, tenderness with palpation over bladder on bimanual examI suspect patient could benefit for pelvic floor physical therapy, discussed this with patient. Declined at this time.She would like urology consult for frequent urination, referral sentWe discussed possible endometrio sis component given long standing hx of pelvic pain, we agreed to MD consult for further evaluation of pelvic painSuspec t some of her pain is also GI related, given recent hx of constipati on. She does not have a PCP, encouraged her to establish care. GI referral sent. We discussed daily stool softners, increasing fiber, etc.-Repea t u/s in 8 weeks for ovarian nodule-Con hot die picker pelvic floor physical therapy-RT C for MD consult for pelvic pain Time spent in visit is a total of 45 mins with at least 50% of visit consisting of counseling and review of plan of care. ED precaution s discussed Increased frequency of urination [id number] R35.0 History of endometrial ablation [id number] 06093 N99.85 Constipation 98659694 K5 9.00 Urinary symptoms 0334602 08 R39.9 Health Concerns Section Related Observation LastModified by Organization Detai ls LastModified Time None Recorded Concern Status LastModified by Organization Details LastModified Time None Recorded Advance Directives Directive None Recorded Payers Insurance Date Sequence Insurance Name Policy Number Policy Izaguirre Covered Member ID Izaguirre Member ID Guarantor Name 08/06/2023 1 [facility] ON OR AFTER 12/15/20 (MEDICAID REPLACEMENT - HMO) Evelin Noriega [id number] Evelin Noriega Notes Date Note Type Note Provider Name and Address Organization Details Recorded Time 01/18/2022 text/html [id number] for evaluation of vaginal discharge, odor, and itching x 1 weekDenies any urinary symptomsSome abdominal cramping that comes and goesBTL in 2016Endometrial ablation 08/2021 for heavy menses at outside facilityHaving light periods monthly sinceHad normal pap this year at outside facility per patient DAR Whyte [address], [place], [address], [facility] 01/18/2022 17:16:51 02/08/2022 text/html [id number] for pelvic u/s f/uShe has been experiencing pelvic pain for many years. The pain is cramping and sharp pains that come and go. She has pain with intercourse as well.Increase frequency of urination over the last few months. No burning or pain with urination.Bowel movements are irregular, frequently having constipationBTL in 2015Endometrial ablation 08/2021 for heavy menses at outside facilityHaving light periods monthly sinceHad normal pap this year at outside facility per patient DAR Whyte [address], [place], [address], [facility] 02/08/2022 10:31:51 OBGyn Episode Ob Episode Information Episode Created Date Number of Fetuses Patient Bloodtype Patient rh Status Prepregnancy Weight lbs Domestic Partner Domestic Partner Phone Father Name Department Secretary Status 01/19/20 22 1 CLOSED Fetus Data First Name Last Name Admitted to NICU Weight (g) Sex Living Outcome Pediatric Complications Fetus ID Race Codes Race Delivery Type 3175.14 [id number] Vaginal Delivery Jatinder Calculation Initial Jatinder Date Initial Exam Date Initial Exam Provider Initial Ultrasound Date Last Menstrual Period Date Ultra Sound Weeks Gestation 0 Eighteen To Twenty Week Jatinder Update Ultra Sound Date Fundal Height At Umbil Quickening Date Ultra Sound Latest Weeks Gestation Final Jatinder Confirmed By Final Jatinder Confirmed Date Final Jatinder Date Ultra Sound Latest Days Gestation 0 0 Menstrual History Last Menstrual Date Menses Monthly On Bcp Conception Prior Menses Frequency Hcg Plus Date Menarche Onset Age Delivery Information Delivery Date Delivery Type Labor Anesthesia Weeks Gestation Incision Type Labor Labor Length Hrs Delivered By Post Complications Tubal Sterilization Discharge Date Comments 4 Discharge Information Feeding Method Contraceptive Method Maternal HG B and HCT Levels Ob Episode Information Episode Created Date Number of Fetuses Patient Bloodtype Patient rh Status Prepregnancy Weight lbs Domestic Partner Domestic Partner Phone Father Name Department Secretary Status 01/19/20 22 1 CLOSED Fetus Data First Name Last Name Admitted to NICU Weight (g) Sex Living Outcome Pediatric Complications Fetus ID Race Codes Race Delivery Type 3175.14 4 [id number] Vaginal Delivery Jatinder Calculation Initial Jatinder Date Initial Exam Date Initial Exam Provider Initial Ultrasound Date Last Menstrual Period Date Ultra Sound Weeks Gestation 0 Eighteen To Twenty Week Jatinder Update Ultra Sound Date Fundal Height At Umbil Quickening Date Ultra Sound Latest Weeks Gestation Final Jatinder Confirmed By Final Jatinder Confirmed Date Final Jatinder Date Ultra Sound Latest Days Gestation 0 0 Menstrual History Last Menstrual Date Menses Monthly On Bcp Conception Prior Menses Frequency Hcg Plus Date Menarche Onset Age Delivery Information Delivery Date Delivery Type Labor Anesthesia Weeks Gestation Incision Type Labor Labor Length Hrs Delivered By Post Complications Tubal Sterilization Discharge Date Comments 6 Discharge Information Feeding Method Contraceptive Method Maternal HG B and HCT Levels
[2025-03-29 10:13] LABS: Alanine Aminotransferase 42 U/L (6-35); Albumin Level 4.5 g/dL (3.5-5.1); Alkaline Phosphatase 64 U/L (38-126); Anion Gap 9 mmol/L (4-12); Aspartate Amino Transferase 48 U/L (14-36); Bilirubin,Total 0.4 mg/dL (0.2-1.3); Blood Urea Nitrogen 10 mg/dL (7-17); Calcium 9.8 mg/dL (8.4-10.2); Carbon Dioxide 25 mmol/L (22-30); Chloride 106 mmol/L (98-107); Cholesterol 198 mg/dL (0-200); Estimated Glomerular Filt Rate > 60; Glucose 100 mg/dL (65-110); HDL Direct 57 mg/dL; Osmolality Calculated 289 mOsm/kg (285-295); Potassium 4.6 mmol/L (3.4-5.0); Sodium 140 mmol/L (137-145); Total Protein 8.8 g/dL (6.3-8.2); Triglycerides 82 mg/dL (<150)
[2025-03-29 10:20] LABS: Hemoglobin A1C 5.5 % (<5.7)
[2025-03-29 10:44] LABS: Thyroid Stimulating Hormone Reflex 2.180 uIU/mL (0.465-4.68)
== END 2025-03-29 09:34 | disposition home or self-care (01) ==
LOC: CHSLAB 09:34
PROVIDERS: PCP Nurse Practitioner Family; Visit Provider Nurse Practitioner Family
DX: Z00.00 Encounter for general adult medical examination without abnormal findings (principal); R74.8 Abnormal levels of other serum enzymes
CPT/HCPCS: 36415; 80053; 80061; 80074; 83036; 84443; 85025